=== PATIENT | female | born 1965 | race Caucasian/White ===

== ENCOUNTER 2019-11-07 13:33 | Outpatient (CLI) | payer BC, SELFPAY ==
--- NOTE | ~2019-11-07 | MM_ITS ---
EXAMINATION: MM screening rudolph BI w adan HISTORY: Screening mammogram TECHNIQUE: Craniocaudal and mediolateral oblique 3-D tomosynthesis images were obtained and synthetic 2-D images were generated. CAD analysis was submitted and interpreted. COMPARISON: 10/26/2018, 11/29/2015, 06/29/2013 bilateral screening mammogram examinations BREAST PARENCHYMAL COMPOSITION: There are scattered areas of fibroglandular density. FINDINGS: There is no evidence of suspicious mass, calcification, or architectural distortion to sugg est malignancy in either breast. There has been no suspicious interval change. IMPRESSION: 1. No mammographic evidence of malignancy. 2. Recommend routine screening mammography in one year. BI-RADS Category 1: Negative Reviewed, dictated and finalized at location A. 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
== END 2019-11-07 13:34 | disposition home or self-care (01) ==
LOC: ANHIMG 13:38
PROVIDERS: PCP Family Medicine; Visit Provider Obstetrics & Gynecology
DX: Z12.31 Encounter for screening mammogram for malignant neoplasm of breast (principal)
CPT/HCPCS: 77063; 77067

== ENCOUNTER 2020-07-21 13:03 | Emergency (ER) | payer OTHER, BC, SELFPAY ==
--- NOTE | ~2020-07-21 | XR_ITS ---
EXAMINATION: XR shoulder RT min 2V INDICATION: Right shoulder pain TECHNIQUE: Four views of the right shoulder are obtained on six radiographs. COMPARISON: None FINDINGS: Normal alignment. No fracture. Glenohumeral and acromioclavicular joint spaces are normal. Soft tissues are unremarkable. IMPRESSION: 1. No acute osseous abnormality. Reviewed, dictated and finalized at location A.
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
[2020-07-21 13:06] VITALS: BP 179/73; PULSE 61; RESP 16; TEMP 37.2; O2SAT 99
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
== END 2020-07-21 14:55 | disposition home or self-care (01) ==
PROVIDERS: Emergency Provider Emergency Medicine; PCP Family Medicine
DX: S16.1XXA Strain of muscle, fascia and tendon at neck level, initial encounter (principal); E78.5 Hyperlipidemia, unspecified; I10 Essential (primary) hypertension; Z87.442 Personal history of urinary calculi; E11.9 Type 2 diabetes mellitus without complications; M47.812 Spondylosis without myelopathy or radiculopathy, cervical region; E89.0 Postprocedural hypothyroidism; V43.52XA Car driver injured in collision with other type car in traffic accident, initial encounter
CPT/HCPCS: 72125; 73030; 99284

== ENCOUNTER → 2020-07-30 11:59 | Outpatient (CLI) | payer BC, SELFPAY ==
--- NOTE | ~2020-07-30 | US_ITS ---
EXAMINATION: US thyroid DATE: 07/30/2020 12:26 INDICATION: Nontoxic single thyroid nodule. TECHNIQUE: Multiple ultrasound images of the thyroid were obtained. COMPARISON: Ultrasound 11/24/2009 FINDINGS: The right thyroid lobe measures 5.1 x 1.9 x 1.7 cm. The left thyroid lobe measures 6.1 x 2.7 x 2.4 c m. The thyroid demonstrates diffusely heterogeneous echogenicity and multiple nodules. In the left t hyroid lobe, there is a 3.1 cm solid, hypoechoic, gadbo-zwlv-oetq nodule with ill-defined margin with out echogenic foci (TI-RADS TR4). In the left thyroid lobe, there is a 1.5 cm solid, hypoechoic, wide r-than-tall nodule with ill-defined margin without echogenic foci (TR4). In the left thyroid lobe, th ere is a 1.4 cm solid, hypoechoic, ysqow-xdua-sfgf nodule with ill-defined margin without echogenic f oci (TR4). In the right thyroid lobe, there is a 1.3 cm solid, hyperechoic, gyerp-zkdh-lmbe nodule wi th smooth margin without echogenic foci (TR3). In the right thyroid lobe, there is a 1.4 cm solid, is oechoic, ypyke-btkd-wjhf nodule with ill-defined margin without echogenic foci (TR3). IMPRESSION: 1. Multinodular goiter, worsened from 11/24/2009. Ultrasound-guided fine needle aspiration of the 2 la rgest nodules is recommended. Reviewed, dictated and finalized at location A. IMPRESSION: 1. Multinodular goiter, worsened from 11/24/2009. Ultrasound-guided fine needle aspiration of the 2 largest nodules is recommended.
== END ==
PROVIDERS: Visit Provider Internal Medicine Endocrinology, Diabetes & Metabolism
DX: E04.2 Nontoxic multinodular goiter (principal)
CPT/HCPCS: 76536

== ENCOUNTER 2020-08-12 06:33 | Outpatient (CLI) | payer OTHER, BC, SELFPAY ==
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
== END 2020-08-12 06:34 | disposition home or self-care (01) ==
PROVIDERS: PCP Family Medicine; Visit Provider Nurse Practitioner Family
DX: M54.2 Cervicalgia (principal); V89.2XXA Person injured in unspecified motor-vehicle accident, traffic, initial encounter; M47.812 Spondylosis without myelopathy or radiculopathy, cervical region
CPT/HCPCS: 72141

== ENCOUNTER 2021-03-27 11:29 | Emergency (ER) | payer BC, SELFPAY ==
[2021-03-27] VITALS (10 sets, daily range): BP systolic 147–171; BP diastolic 81–100; PULSE 65–75; RESP 16–22; TEMP 37.1; O2SAT 95–100
--- NOTE | ~2021-03-27 | CT_ITS ---
EXAMINATION: CT abdomen pelvis w con DATE: 03/27/2021 17:42 INDICATION: Right lower quadrant abdominal pain TECHNIQUE: Computed tomography (CT) of the abdomen and pelvis was performed with 100 cc intravenous c ontrast. Automated exposure control and iterative reconstruction technique were employed. Exam dose: 1051.19 mGy-cm total exam DLP. COMPARISON: 07/26/2019 KUB 07/16/2019 CT abdomen pelvis FINDINGS: Mild atelectasis at the left lung base. The lung bases are otherwise clear. Normal heart size. No pericardial or pleural effusion. Status post cholecystectomy. The liver, bile ducts, spleen, pancreas, pancreatic duct, and adrenal glands and kidneys and urinary bladder are unremarkable. Status post hysterectomy. Normal caliber abdominal aorta. No intraperitoneal or retroperitoneal or pelvic mass lesion or adenop athy or ascites. Diverticulosis of the sigmoid and to a lesser extent descending colon; no CT evidence of diverticulit is. No bowel obstruction, bowel wall thickening, pneumatosis or intraperitoneal free air. Fat-containing umbilical hernia. There is distention of the proximal jejunum up to 2.8 cm, with fluid containing small bowel segments, which may represent enteritis or mild adynamic ileus. There are some shoddy nonenlarged right lower quadrant lymph nodes. No evidence of appendicitis. No suspicious osteolytic or osteoblastic lesions. IMPRESSION: Status post cholecystectomy Status post hysterectomy Nonspecific nondilated fluid-containing small bowel segments, which may be due to enteritis or mild a dynamic ileus Diverticulosis of left colon; no CT evidence of diverticulitis Reviewed, dictated and finalized at Location A. Reviewed, dictated and finalized at location A. IMPRESSION: Status post cholecystectomy Status post hysterectomy Nonspecific nondilated fluid-containing small bowel segments, which may be due to enteritis or mild adynamic ileus Diverticulosis of left colon; no CT evidence of diverticulitis
[2021-03-27 12:32] LABS: Basophils Absolute Auto 0.1 K/mm3 (0.0-0.1); Basophils Percent Auto 0.5 % (0.2-1.2); Eosinophils Absolute Auto 0.3 K/mm3 (0-0.3); Eosinophils Percent Auto 2.7 % (0-4.4); Hematocrit 42.4 % (37.0-47.0); Hemoglobin 14.3 g/dL (12.0-15.0); Immature Granulocyte Absolute 0.03 K/mm3 (0.00-0.031); Immature Granulocyte Percent A 0.3 % (0-0.5); Lymphocytes Absolute Auto 2.65 K/mm3 (0.9-3.2); Mean Corpuscular HGB Conc 33.7 g/dl (32-36); Mean Corpuscular Hemoglobin 30.5 pg (26-34); Mean Corpuscular Volume 90.4 fl (80-100); Mean Platelet Volume 9.9 fl (7.4-10.4); Monocytes Absolute Auto 0.6 K/mm3 (0.1-0.6); Monocytes Percent Auto 6.9 % (2.6-8.5); Neutrophils Absolute Auto 5.5 K/mm3 (1.3-6.7); Neutrophils Percent Auto 60.6 % (45.5-73.1); Platelet Count Result 271 k/mm3 (150-375); Red Blood Count 4.69 M/mm3 (4.2-5.4); Red Cell Distribution Width 12.4 % (11.5-14.5); White Blood Count 9.2 K/mm3 (4.5-10.0)
[2021-03-27 12:42] LABS: Alanine Aminotransferase 21 U/L (4-35); Albumin Level 4.6 g/dL (3.5-5.1); Alkaline Phosphatase 117 U/L (38-126); Anion Gap 8 mmol/L (8-16); Aspartate Amino Transferase 30 U/L (14-36); Bilirubin,Total 0.7 mg/dL (0.2-1.3); Blood Urea Nitrogen 11 mg/dL (7-17); Calcium 9.7 mg/dL (8.4-10.2); Carbon Dioxide 29 mmol/L (22-30); Chloride 107 mmol/L (98-107); Estimated CRCL calculation 78 ml/min; Estimated Glomerular Filt Rate > 60; Glucose 119 mg/dL (65-105); Lipase 53 U/L (23-300); Potassium 3.9 mmol/L (3.4-5.0); Sodium 144 mmol/L (137-145)
[2021-03-27 14:57] LABS: Add Urine Microscopic? YES; Amorphous Sediment Urine Few; Appearance Urine Cloudy (Clear); Bacteria Urine Trace /hpf; Bilirubin Urine Negative (Negative); Blood Urine 2+ (Negative); Color Urine Amber (Yellow); Glucose Urine UA Negative (Negative); Ketones Urine Negative (Negative); Leukocyte Esterase Ur Negative LEU/UL (Negative); Mucus Urine Heavy /lpf; Nitrate Urine Negative (Negative); Protein Urine 1+ mg/dL (Negative); Specific Grav Ur 1.028 (1.001-1.035); Squamous Epithelial Cell Urine Few /hpf (Few); Urobilinogen Urine Negative mg/dL (<2.0)
--- NOTE | 2021-03-27 18:15 | ED.ABDPAIN ---
HPI - Abdominal Pain General Chief Complaint: Abdominal Pain Stated Complaint: rt lower abd pain, n/v/d Time Seen by Provider: 03/27/21 16:12 Source: patient Mode of arrival: ambulatory Limitations: no limitations History of Present Illness HPI narrative: 55-year-old with a history of hypertension, diabetes , diverticulosis here with complaints of right lower abdominal pain since this morning. Patient states that for the past day or so she has been having diarrhea. She denies any blood in the stool. No history of fever or chills. Denies urinary symptoms. MD elicited complaint: abdominal pain Pertinent past history: diverticulitis Onset (ago): day(s) (1) Pain Consistency: constant Location: RLQ Severity: mild Quality: cramping Radiation: none Migration to: no migration Exacerbating factors: nothing Relieving factors: nothing Related Data Allergies Allergy/AdvReac Type Severity Reaction Status Date / Time Sulfa (Sulfonamide Allergy Severe RASH Verified 09/25/20 13:45 Antibiotics) atenolol Allergy Unknown Cough Verified 09/25/20 13:45 cefuroxime Allergy Unknown Rash Verified 09/25/20 13:45 latex Allergy Unknown Unknown Verified 09/25/20 13:45 levofloxacin Allergy Unknown Rash Verified 09/25/20 13:45 sulfanilamide Allergy Unknown Rash Verified 09/25/20 13:45 adhesive tape AdvReac Severe RASH Verified 09/25/20 13:45 Review of Systems Review of Systems: All systems reviewed & are unremarkable except as noted in HPI and below Constitutional: Constitutional: Reports no additional constitutional complaints Eyes: Eyes: Reports no additional eye complaints ENT: Reports system reviewed and no additional complaints, except as documented Cardiovascular: Cardiovascular: Reports no additional cardiovascular complaints Respiratory: Respiratory: Reports no additional respiratory complaints Gastrointestinal: Gastrointestinal: Reports as per HPI Musculoskeletal: Musculoskeletal: Reports no additional musculoskeletal complaints Neurologic: Reports system reviewed and no additional complaints, except as documented Psychiatric: Psychiatric: Reports no additional psychiatric complaints [facility] Past Medical History Medical History Acute left-sided low back pain without sciatica BMI 34.0-34.9,adult Dyslipidemia Essential hypertension Irritable bowel syndrome with diarrhea Kidney stone New onset type 2 diabetes mellitus Other ventral hernia without mention of obstruction or gangrene Piriformis muscle pain Plantar fascial fibromatosis Thyroid nodule Family History Family History Father Hypertension Family history of diabetes mellitus in first degree relative Family history of heart disease in male family member before age 55 Diabetes mellitus Family history of cardiovascular disease Mother Hypertension Family history of heart disease in male family member before age 55 Grandparent Hypertension Family history of heart disease in male family member before age 55 Sibling Diabetes mellitus Hypertension Family history of malignant neoplasm of breast in first degree relative Social History Social History Smoking status: Never smoker Alcohol intake: current Exam Narrative: Exam Narrative: GENERAL: Well-appearing, well-nourished, and in no acute distress. HEAD: Normocephalic, atraumatic. EYES: PERRLA and EOMI. NECK: Supple. CHEST: Clear to auscultation. No respiratory distress. HEART: Regular rate and rhythm. No murmur heard. Normal peripheral pulses. ABDOMEN: Soft, mild tendeness in the right lower quadrant, nondistended, normal active bowel sounds. EXTREMITIES: Normal range of motion. No edema. SKIN: Warm, dry, no rash. NEURO: No focal deficits. Alert and oriented x3. PSYCH: Normal mood and affect. Course Course Emergency Course: Patient has
== END 2021-03-27 18:46 | disposition home or self-care (01) ==
PROVIDERS: Emergency Provider Family Medicine; PCP Family Medicine
DX: K52.9 Noninfective gastroenteritis and colitis, unspecified (principal); R10.31 Right lower quadrant pain; I10 Essential (primary) hypertension; E11.9 Type 2 diabetes mellitus without complications
CPT/HCPCS: 36415; 74177; 80053; 81001; 83690; 85025; 99284; Q9967

== ENCOUNTER → 2021-05-12 15:29 | Outpatient (CLI) | payer BC, SELFPAY ==
--- NOTE | ~2021-05-12 | XR_ITS ---
XR knee RT 2V DATE: 05/12/2021 15:56 INDICATION: Right knee pain TECHNIQUE: Standing AP and lateral views COMPARISON: None FINDINGS: There is slight periarticular spurring of the patella consistent with osteoarthritis. Knee joint spaces appear well preserved. No radiopaque intra-articular loose body or chondrocalcinosi s. No fracture or dislocation or joint effusion. No periosteal reaction or bone destruction. IMPRESSION: Mild osteoarthritis at the patellofemoral joint Reviewed, dictated and finalized at location B.
--- NOTE | ~2021-05-12 | XR_ITS ---
XR knee LT 2V DATE: 05/12/2021 15:56 INDICATION: Left knee pain TECHNIQUE: Standing AP and lateral views COMPARISON: None FINDINGS: There is periarticular spurring at the patellofemoral compartment. Medial and lateral will rtment joint spaces are well preserved. No fracture or dislocation or joint effusion, radiopaque intra-articular loose body or chondrocalcino sis. No periosteal reaction or bone destruction. IMPRESSION: Patellofemoral osteoarthritis Reviewed, dictated and finalized at location B.
== END ==
PROVIDERS: PCP Family Medicine; Visit Provider Nurse Practitioner Family
DX: M25.561 Pain in right knee (principal); M25.562 Pain in left knee; M17.0 Bilateral primary osteoarthritis of knee
CPT/HCPCS: 73560

== ENCOUNTER → 2021-06-09 01:56 | Outpatient (CLI) | payer BC, SELFPAY ==
[2021-06-09 19:54] LABS: SARS-CoV-2 RNA PCR Negative
== END ==
PROVIDERS: PCP Family Medicine; Visit Provider Physician Assistant Medical
DX: R68.89 Other general symptoms and signs (principal); J02.9 Acute pharyngitis, unspecified; Z20.822 Contact with and (suspected) exposure to COVID-19
CPT/HCPCS: C9803; U0003; U0005

== ENCOUNTER → 2021-06-26 01:36 | Outpatient (CLI) | payer BC, SELFPAY ==
[2021-06-26 19:38] LABS: SARS-CoV-2 RNA PCR Negative
== END ==
PROVIDERS: PCP Family Medicine; Visit Provider Family Medicine
DX: R68.89 Other general symptoms and signs (principal); Z20.822 Contact with and (suspected) exposure to COVID-19
CPT/HCPCS: C9803; U0003; U0005

== ENCOUNTER → 2021-08-19 07:47 | Outpatient (CLI) | payer BC, SELFPAY ==
--- NOTE | ~2021-08-19 | US_ITS ---
EXAMINATION: US thyroid EXAM DATE: 08/19/2021 08:42 INDICATION: Multinodular goiter TECHNIQUE: Multiple grayscale and Doppler images of the thyroid were obtained (by a technologist who performed the scan) and subsequently reviewed. Individual nodules and recommendations may be reporte d in accordance with TI-RADS system as designated by the 2017 ACR White Paper TI-RADS committee. Comp temitope is made to prior examination from 07/30/2020. FINDINGS: Right thyroid lobe measures 5.3 x 2.2 x 1.7 cm, the left measuring 6.0 x 2.9 x 2.5 cm. Dimensions are moderately enlarged. There is moderately diffusely heterogeneous echogenicity and increased thyroid parenchymal vascularity. Scattered thyroid nodules. Largest right thyroid lobe nodule measures 1.4 x 1.0 x 1.1 cm, solid (2 points), isoechoic (1 point), wider than tall, smooth well defined margin, without echogenic foci, category TR3 for this nodule. T his is unchanged. Largest left thyroid lobe nodule measures 3.1 x 1.9 x 2.2 centimeters, solid (2 points), isoechoic (1 point), wider than tall, smooth well defined margin, without echogenic foci, category TR3 for this n odule. Dimensions provided on previous exam at 3.1 x 2.3 x 2.0. Size warrants considering ultrasound and biopsy IMPRESSION: Stable multinodular goiter. Consider ultrasound-guided FNA of largest left thyroid lobe n odule. Reviewed, dictated and finalized at location A. 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 Consider ultrasound-guided FNA of large st left thyroid lobe nodule.
== END ==
PROVIDERS: PCP Family Medicine; Visit Provider Internal Medicine Endocrinology, Diabetes & Metabolism
DX: E04.2 Nontoxic multinodular goiter (principal)
CPT/HCPCS: 76536

== ENCOUNTER 2021-11-12 08:13 | Outpatient (CLI) | payer BC, SELFPAY ==
[2021-11-12 08:45] LABS: Cholesterol 170 mg/dL (0-200); HDL Direct 31 mg/dL; Triglycerides 100 mg/dL (<150)
[2021-11-12 08:54] LABS: Hemoglobin A1C 5.9 % (<5.7)
[2021-11-12 08:56] LABS: LDL Cholesterol Direct 98 mg/dL
[2021-11-12 09:17] LABS: Thyroid Stimulating Hormone 0.482 uIU/mL (0.465-4.680)
[2021-11-12 09:40] LABS: Free T4 Free Thyroxine 1.01 ng/mL (0.78-2.19)
== END 2021-11-12 08:14 | disposition home or self-care (01) ==
LOC: ANHLAB 08:15
PROVIDERS: PCP Family Medicine; Visit Provider Family Medicine
DX: E04.1 Nontoxic single thyroid nodule (principal); E11.65 Type 2 diabetes mellitus with hyperglycemia; E78.5 Hyperlipidemia, unspecified; Z13.220 Encounter for screening for lipoid disorders
CPT/HCPCS: 36415; 80061; 83036; 84439; 84443

== ENCOUNTER 2021-12-29 11:36 | Outpatient (CLI) | payer BC, SELFPAY ==
--- NOTE | ~2021-12-29 | MMUS_ITS ---
EXAMINATION: MM diagnostic rudolph BI w adan, US breast BI complete HISTORY: Bilateral breast pain for over 2 months TECHNIQUE: ML, MLO and CC 3-D tomosynthesis images of both breasts were performed and synthetic 2-D i mages were generated. CAD analysis was submitted and interpreted. High resolution complete breast ult rasound including all 4 quadrants and subareolar areas was performed. COMPARISON: 11/07/2019, 10/26/2018 bilateral screening mammogram examinations BREAST PARENCHYMAL COMPOSITION: There are scattered areas of fibroglandular density. FINDINGS: MAMMOGRAPHIC FINDINGS: No suspicious mass or architectural distortion, malignant calcification, skin thickening or retractio n or significant new or developing density is detected. ULTRASOUND: There is no evidence of suspicious mass or shadowing or other significant sonographic finding of eith er breast. IMPRESSION: 1. No mammographic evidence of malignancy 2. Routine mammographic screening is recommended. BI-RADS Category 1: Negative Reviewed, dictated and finalized at location A. IMPRESSION: 1. No mammographic evidence of malignancy 2. Routine mammographic screening is recommended. BI-RADS Category 1: Negative
== END 2021-12-29 11:37 | disposition home or self-care (01) ==
LOC: ANHIMG 11:41
PROVIDERS: PCP Family Medicine; Visit Provider Obstetrics & Gynecology
DX: N64.4 Mastodynia (principal)
CPT/HCPCS: 76641; 77062; 77066; G0279

== ENCOUNTER → 2022-06-01 15:25 | Outpatient (CLI) | payer BC, SELFPAY ==
--- NOTE | ~2022-06-01 | XR_ITS ---
EXAMINATION: [id number]_[id number] INDICATION: Chest pain TECHNIQUE: AP view of the chest and 3 views of the bilateral ribs were obtained. COMPARISON: None. FINDINGS: The lungs are free of acute opacities. No pleural effusion or pneumothorax. The cardiomedia stinal silhouette is normal. No displaced rib fracture is identified. Surgical clips are noted in the right neck. Surgical clips in the right upper quadrant are likely from prior cholecystectomy. IMPRESSION: 1. No acute cardiopulmonary abnormality or evidence of displaced rib fracture. Reviewed, dictated and finalized at location B.
== END ==
PROVIDERS: PCP Family Medicine; Visit Provider Nurse Practitioner Family
DX: R07.9 Chest pain, unspecified (principal)
CPT/HCPCS: 71111

== ENCOUNTER → 2023-03-31 09:42 | Outpatient (CLI) | payer BC, SELFPAY ==
--- NOTE | ~2023-03-31 | US_ITS ---
US thyroid INDICATION: Thyroid nodule TECHNIQUE: Real-time sonographic images of the thyroid gland were obtained. COMPARISON: Ultrasound dated 08/19/2021 FINDINGS: The right thyroid lobe measures 5.4 x 2 x 1.6 cm. The left thyroid lobe measures 5 x 3 x 2 .6 cm. Thyroid echotexture is diffusely heterogeneous. In the right lobe there is a complex solid hyp erechoic wider than tall ill-defined marginated mass without echogenic foci measuring 1.5 x 0.9 x 1.4 cm compared with 1.4 x 1 x 1.1 cm on prior examination, TR 3. In the left lobe there is a dominant m ass measuring 3.1 x 2 x 2 cm which is predominantly solid, hyperechoic, wider than tall, smoothly mar ginated without echogenic foci, TR 3. This mass is stable compared with prior examination. Additional smaller masses are unchanged. Normal vascular flow is present. IMPRESSION: 1. Slightly increased size of right thyroid mass allowing for differences of technique. Bilateral th yroid masses are compatible with multinodular goiter and are likely benign. Recommend follow-up ultra sound in 12 months. Reviewed, dictated and finalized at location L. IMPRESSION: 1. Slightly increased size of right thyroid mass allowing for differences of t echnique. Bilateral thyroid masses are compatible with multinodular goiter and are likely benign. Recommend follow-up ultrasound in 12 months.
== END ==
PROVIDERS: PCP Family Medicine; Visit Provider Family Medicine
DX: E04.1 Nontoxic single thyroid nodule (principal)
CPT/HCPCS: 76536

== ENCOUNTER 2023-06-09 08:53 | Emergency (ER) | payer BC, SELFPAY ==
--- NOTE | ~2023-06-09 | US_ITS ---
Duplex Sonography of the left extremity: Indication: Pain and swelling Findings: Sagittal and transverse B-mode images as well as color-flow imaging were performed on the l eft femoral and popliteal veins. B-mode examination was done without and with compression in the tra nsverse plane. There is good visualization of the common femoral, proximal profunda femoral, superfi cial femoral, greater saphenous, and popliteal veins. Normal flow was seen on color-flow imaging. No rmal compressibility was demonstrated. Visualized calf veins are also patent. Impression: No evidence of deep vein thrombosis involving the left lower extremity. Reviewed, dictated and finalized at location . Impression: No evidence of deep vein thrombosis involving the left lower extremity.
[2023-06-09 08:58] VITALS: BP 154/84; PULSE 60; RESP 16; TEMP 36.9; O2SAT 100
--- NOTE | 2023-06-09 09:43 | ED.GENADULT ---
HPI - General Adult General Chief complaint: Extremity Problem,Nontraumatic Stated complaint: left knee swelling Time Seen by Provider: 06/09/23 09:00 Source: patient Mode of arrival: ambulatory Limitations: no limitations History of Present Illness HPI narrative: This is a 57-year-old female who presents to the ED with chief complaint of left lower extremity pain beginning 10 days ago. Patient states that she has had posterior left knee pain that radiates into the calf and superiorly as well. She reports that she is starting to have some calf swelling over the past couple days which is new to her. Denies any history of blood clots. 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 Denies fevers, chills, erythema, warmth, nausea, vomiting. Related Data Allergies Allergy/AdvReac Type Severity Reaction Status Date / Time Sulfa (Sulfonamide Allergy Severe RASH Verified 06/09/23 09:04 Antibiotics) atenolol Allergy Unknown Cough Verified 06/09/23 09:04 cefuroxime Allergy Unknown Rash Verified 06/09/23 09:04 latex Allergy Unknown Unknown Verified 06/09/23 09:04 levofloxacin Allergy Unknown Rash Verified 06/09/23 09:04 sulfanilamide Allergy Unknown Rash Verified 06/09/23 09:04 adhesive tape AdvReac Severe RASH Verified 06/09/23 09:04 Review of Systems Review of Systems: All systems as dictated in [facility] Past Medical History Medical History (Updated 06/09/23 @ 09:46 by Logan Sanchez PA-C) Acute left-sided low back pain without sciatica BMI 27.0-27.9,adult BMI 29.0-29.9,adult BMI 32.0-32.9,adult BMI 33.0-33.9,adult BMI 34.0-34.9,adult BMI 36.0-36.9,adult BMI 36.0-36.9,adult Dyslipidemia Essential hypertension Eustachian tube dysfunction Insomnia Irritable bowel syndrome with diarrhea Kidney stone New onset type 2 diabetes mellitus Other ventral hernia without mention of obstruction or gangrene Otitis externa Piriformis muscle pain Plantar fascial fibromatosis Thyroid nodule Family History Family History Father Hypertension Family history of diabetes mellitus in first degree relative Family history of heart disease in male family member before age 55 Diabetes mellitus Family history of cardiovascular disease Mother Hypertension Family history of heart disease in male family member before age 55 Grandparent Hypertension Family history of heart disease in male family member before age 55 Sibling Diabetes mellitus Hypertension Family history of malignant neoplasm of breast in first degree relative Breast cancer [place]'s disease Heart disease Social History Social History Smoking status: Never smoker Second hand tobacco smoke exposure: Yes Alcohol intake: current Substance use: never Substance use type: does not use Living arrangements: with family Occupation/Education: retired 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 HEAD: Normocephalic, atraumatic. EYES: PERRLA and EOMI. ENT: Nares clear, no rhinorrhea or epistaxis. Mucous membranes moist. Oropharynx without tonsillar hypertrophy exudate or other lesions. NECK: Supple. No adenopathy or masses. CHEST: No respiratory distress. Clear to auscultation. No wheezes rales or rhonchi HEART: Regular rate and rhythm. No murmur heard. Normal peripheral pulses. ABDOMEN: Soft, nontender, nondistended, normal active bowel sounds. MSK: Left lower extremity: Mild swelling in the left calf. Mild tenderness throughout the knee joint. Most tenderness is on the lateral side of the knee extending up the left lateral thigh. There is no redness, warmth in the joint. She has full active r
[2023-06-09 10:01] VITALS: BP 136/82; PULSE 78; RESP 16; O2SAT 99
== END 2023-06-09 10:02 | disposition home or self-care (01) ==
PROVIDERS: Emergency Provider Physician Assistant; PCP Family Medicine
DX: M25.562 Pain in left knee (principal); I10 Essential (primary) hypertension; E78.5 Hyperlipidemia, unspecified; E11.9 Type 2 diabetes mellitus without complications; K58.0 Irritable bowel syndrome with diarrhea; M72.2 Plantar fascial fibromatosis; Z87.442 Personal history of urinary calculi
CPT/HCPCS: 93971; 99284

== ENCOUNTER 2023-06-30 09:00 | Outpatient (CLI) | payer BC, SELFPAY ==
--- NOTE | ~2023-06-30 | MM_ITS ---
EXAMINATION: MM screening rudolph BI w adan HISTORY: Screening TECHNIQUE: Craniocaudal and mediolateral oblique 3-D tomosynthesis images were obtained and synthetic 2-D images were generated. CAD analysis was submitted and interpreted. COMPARISON: Comparison to multiple prior studies sequentially, with oldest reviewed study dated 12/03. BREAST PARENCHYMAL COMPOSITION: Breast composed of scattered areas of fibroglandular density FINDINGS: There is no evidence of suspicious mass, calcification, or architectural distortion to sugg est malignancy in either breast. There has been no suspicious interval change. IMPRESSION: 1. No mammographic evidence of malignancy. 2. Recommend routine screening mammography in one year. BI-RADS Category 1: Negative Reviewed, dictated and finalized at location A.
== END 2023-06-30 09:01 | disposition home or self-care (01) ==
LOC: ANHIMG 09:01
PROVIDERS: PCP Family Medicine; Visit Provider Obstetrics & Gynecology
DX: Z12.31 Encounter for screening mammogram for malignant neoplasm of breast (principal)
CPT/HCPCS: 77063; 77067

== ENCOUNTER → 2023-09-20 13:33 | Outpatient (CLI) | payer BC, SELFPAY ==
--- NOTE | ~2023-09-20 | MR_ITS ---
EXAMINATION: MR knee LT wo con DATE: 09/20/2023 14:34 INDICATION: M17.12 - Unilateral primary osteoarthritis, left knee TECHNIQUE: Magnetic resonance imaging (MRI) of the left knee was performed without intravenous contra st. Sequences included axial PD-weighted FS FSE, coronal PD-weighted FSE and PD-weighted FS FSE, sagi ttal PD-weighted FSE, and sagittal T2-weighted FS FSE. COMPARISON: X-ray left knee 05/12/2021. FINDINGS: Medial compartment: Mild degenerative signal change in the meniscus, no discrete tear. Mild diffuse cartilage thinning an d partial thickness signal abnormality, no focal defect. Mild osteophytosis. Lateral compartment: Intact meniscus. Mild diffuse cartilage thinning and osteophytosis. Patellofemoral compartment: Intact. Focal 2 mm full-thickness cartilage loss on the inferior aspect of the lateral facet with sub chondral cysts, in a background of mild diffuse thinning/partial thickness signal abnormality. Mild o steophytosis. Ligaments and tendons: The ACL, PCL, MCL, and LCL are intact. Remaining flexor and extensor tendons are intact. Fluid: Small volume joint fluid. Tiny Capps's cyst. Osseous/other: No suspicious focal or diffuse marrow signal. IMPRESSION: No internal derangement. Mild tricompartmental osteoarthritic change. Reviewed, dictated and finalized at location K. LOPMENT CONSULTANT
== END ==
PROVIDERS: PCP Family Medicine; Visit Provider Orthopaedic Surgery
DX: M17.12 Unilateral primary osteoarthritis, left knee (principal)
CPT/HCPCS: 73721

== ENCOUNTER 2023-10-31 13:13 | Outpatient (CLI) | payer BC, SELFPAY ==
--- NOTE | 2023-10-31 13:24 | ECG_ITS ---
Measurements Intervals [place] Rate: 63 P: 28 MN: 140 QRS: -17 QRSD: 106 T: -8 QT: 414 QTc: 424 Interpretive Statements SINUS RHYTHM VOLTAGE CRITERIA FOR LVH POOR R WAVE PROGRESSION, ANTERIOR LEADS MINIMAL Q WAVES- HIGH LATERAL LEADS BORDERLINE ST-T WAVE ABNORMALITY- ANT/INF LEADS BASELINE ARTIFACT- I, II, AVR, AVF BORDERLINE ECG NO PREVIOUS ECG AVAILABLE FOR COMPARISON Electronically Signed On 10-31-2023 14:42:08 AERIAL PHOTOGRAPHER by Ken Chin D.O.
== END 2023-10-31 13:14 | disposition home or self-care (01) ==
LOC: ANHSURGERY 13:16
PROVIDERS: PCP Family Medicine; Visit Provider Orthopaedic Surgery
DX: Z01.818 Encounter for other preprocedural examination (principal); I10 Essential (primary) hypertension; R93.1 Abnormal findings on diagnostic imaging of heart and coronary circulation
CPT/HCPCS: 93005

== ENCOUNTER 2023-11-03 00:50 | Day surgery (SDC) | payer BC, SELFPAY ==
[2023-10-27 09:24] VITALS: BMI 32.3
--- NOTE | 2023-10-27 09:31 | PC.NURSE ---
Report to the Outpatient Waiting Room, entrance under the green pavilion located off [facility], at time 11:30 on date 11/03/23. Planned Procedure Time: 1:30. Time changes happen often and if your time is changed the preop area will call you the afternoon before. - You and your visitor will be asked to self-screen and do not enter if you have any COVID symptoms. - A mask is optional within the hospital at this time. Patients may have clear liquids (water, carbonated beverages, clear teas, apple juice) until 3 hours prior to surgery (10:30) with a maximum of 20 ounces. - No food from midnight until time of surgery Take the following medications with a SIP of water the morning of surgery: VALACYCLOVIR IF NEEDED DO NOT STOP ANY OF YOUR OTHER PRESCRIPTION MEDICATIONS PRIOR TO SURGERY ?EXCEPT THE FOLLOWING Medications to discontinue per physician: MELOXICAM Date to take last dose: 10/26/23 Please no make-up, nail korean, hairspray, perfume, deodorant, or body powder the day of surgery. No jewelry (including any body piercings) or valuables the day of surgery, leave them at home. Please take a shower or bath the night before, or the morning of, surgery with an antibacterial soap. Wear comfortable, loose fitting clothing. - Jewelry must be removed prior to entering the operating room. Rings and piercings that are not removed may be cut off. - The hospital will not accept responsibility for valuables. - Please leave all valuables, including medications, at home the day of surgery. If you are going home after surgery, a licensed carry all driver must drive you home. - NO public transportation without another adult if you receive anesthesia. - We recommend that an adult stay with you for 24 hours following discharge. - We also recommend that you do not drive, make important decision, drink alcoholic beverages, or take any drugs that were not prescribed by your health care provider for at least 24 hours after your discharge time. Follow any additional instructions given to you from your surgeon. If you or anyone in your household have experienced Covid symptoms in the past week, please notify your surgeon or the nurse liaison at the phone number below for possible testing. Telephone instructions given to PT - GLEN BARNES and asked if any additional questions and then verbalized understanding. Patient advised to call surgeon office or pre surgery nurse liaison [phone] if any additional questions.
--- NOTE | 2023-11-02 13:13 | WPDANESEPPF ---
Anes - Initial Pre Proc Eval Procedure: Operation Date: 11/03/23 09:30 Proposed Procedures p Left Knee Arthroscopic Patellar Chondroplasty with Microfracture and Lateral Release - Andrey Nelson MD Date/Time: 11/02/23 13:13 Surgeon: Andrey Nelson MD Pre Op Diagnosis: left patella chondral defect Patient Data Age: 58 Gender: F Height: 1.63 m Weight: 85.3 kg Allergies Allergy/AdvReac Type Severity Reaction Status Date / Time Sulfa (Sulfonamide Allergy Severe RASH Verified 11/03/23 08:29 Antibiotics) atenolol Allergy Unknown Cough Verified 11/03/23 08:29 cefuroxime Allergy Unknown Rash Verified 11/03/23 08:29 latex Allergy Unknown Rash Verified 11/03/23 08:29 levofloxacin Allergy Unknown Rash Verified 11/03/23 08:29 sulfanilamide Allergy Unknown Rash Verified 11/03/23 08:29 adhesive tape AdvReac Severe RASH Verified 11/03/23 08:29 Home Medications Medication Instructions Recorded Confirmed Type valacyclovir 500 mg tablet 500 mg PO Q12H #28 tabs 09/12/23 11/01/23 Rx meloxicam 7.5 mg tablet 7.5 mg PO DAILY #90 tabs 09/13/23 11/03/23 Rx lisinopril 40 mg tablet 40 mg PO DAILY #90 tabs 10/30/23 11/03/23 Rx aspirin 81 mg tablet,delayed 81 mg PO BID 14 days #28 tabs 11/03/23 Rx release meloxicam 15 mg tablet 15 mg PO DAILY #30 tabs 11/03/23 Rx oxycodone-acetaminophen 5 mg-325 1 - 2 tablet PO Q4-6H PRN pain #30 11/03/23 Rx mg tablet tabs Patient hx anesthesia problems: post op nausea/vomiting Family hx anesthesia problems: none Results Review: All pre-operative results and documents have been reviewed as part of the pre-operative evaluation. [facility] Past Medical History Medical History Acute left-sided low back pain without sciatica Allergic reaction Bleeding hemorrhoid BMI 27.0-27.9,adult BMI 29.0-29.9,adult BMI 30.0-30.9,adult BMI 31.0-31.9,adult BMI 32.0-32.9,adult BMI 33.0-33.9,adult BMI 34.0-34.9,adult BMI 36.0-36.9,adult BMI 36.0-36.9,adult delivery delivered Cholecystectomy planned Dyslipidemia Essential hypertension Eustachian tube dysfunction Hx of temporomandibular joint disorder Insomnia Irritable bowel syndrome with diarrhea ITB syndrome Kidney stone New onset type 2 diabetes mellitus Other ventral hernia without mention of obstruction or gangrene Otitis externa Patellofemoral arthritis of left knee Piriformis muscle pain Plantar fascial fibromatosis Quadriceps strain Thyroid nodule Surgical History Surgical History History of tonsillectomy Family History Family History Father Hypertension Family history of diabetes mellitus in first degree relative Family history of heart disease in male family member before age 55 Diabetes mellitus Family history of cardiovascular disease Mother Hypertension Family history of heart disease in male family member before age 55 Diabetes mellitus Grandparent Hypertension Family history of heart disease in male family member before age 55 Sibling Diabetes mellitus Hypertension Family history of malignant neoplasm of breast in first degree relative Breast cancer Crista's disease Heart disease Social History Social History Smoking status: Never smoker Second hand tobacco smoke exposure: Yes Alcohol intake: never Substance use: never Substance use type: does not use Do You Feel Safe in your Home?: Yes Lack of Transportation: No Lack of Food: Never True Current Housing: I Have Housing Concerned About Future Housing: No Difficulty Paying Gas/Electric Bills: No Difficulty Paying for Meds: No Currently Unemployed: No Education: Trade/Vocational Certificate Difficulty w/ Childcare or Family Care: No Living arrangements: with
[2023-11-03] VITALS (13 sets, daily range): BP systolic 119–154; BP diastolic 65–102; PULSE 54–90; RESP 14–20; TEMP 36.2–37.6; O2SAT 96–100
--- NOTE | 2023-11-03 07:45 | WPDHPUPDATE1 ---
History and Physical Update Update Date/Time: 11/03/23 07:45 History and Physical has been reviewed, including an updated exam of the patient. There are NO changes in the patient's condition. Risks, benefits, and alternatives have been discussed and questions answered. Patient agrees to proceed with procedure.
[2023-11-03] MEDS: KETOROLAC 15 MG/ML VIAL (*BKC) IV PUSH (08:46)
[2023-11-03] MEDS: ACETAMINOPHEN 500 MG TABLET 1000 MG PO (08:46)
[2023-11-03] MEDS: LACTATED RINGERS 1,000 ML 30 ML IV CONT ×2 (08:49→10:40)
[2023-11-03] MEDS: ONDANSETRON INJ 4 MG/2 ML VIAL IV PUSH (08:53)
[2023-11-03] MEDS: ceFAZolin 2 GM/D5W 50 ML 2 GM/50 ML BAG IVPB (09:19)
[2023-11-03] MEDS: BUPIVACAINE/EPINEPHRINE 0.5% 50 ML VIAL 30 ML INFILTRATE (09:52)
--- NOTE | 2023-11-03 12:54 | W.PM.PROC2 ---
Procedure Note - Detailed Date of Procedure 11/03/23 Pre-op Diagnosis Left knee patella chondral defect with lateral patellar facet overload syndrome. Post-op Diagnosis Same Procedure Performed Arthroscopic lateral release with patellar chondroplasty. Surgeon Andrey Nelson MD Anesthesia General Indications Severe lateral knee pain. Cystic changes at the lateral facet on the MRI. Tight lateral restraints. No response to extensive conservative treatment including in meloxicam, injections, physical therapy, pain management, and injections. Findings High-grade patellofemoral chondromalacia with early areas of exposed bone. Tight lateral restraints. No loose bodies identified. Lateral release performed with the hook probe. Peripatellar debridement and chondroplasty of the patella and medial femoral condyle performed. Medial femur chondromalacia grade 2, medial tibia grade 1. Lateral femur chondromalacia grade 1, lateral tibia grade 0. Patellar grade 4, trochlea grade 4. Description of Procedure The patient was identified and the surgical site confirmed and signed in the preoperative holding area. Antibiotics were started per protocol, and the patient was brought to the operative room and transferred to the OR table. A general anesthetic was administered. Supine position with the operative lower extremity position in the leg fuller after placement of a well padded tourniquet. The leg support was lowered and the contralateral limb was supported with a soft bolster. The knee was prepped and draped in the usual sterile fashion. A time-out was performed. The portal sites were marked and infiltrated with 0.5% Marcaine 20 mL. The limb was exsanguinated and the tourniquet inflated to 300 mL Hg. Standard inferolateral, superior medial, and inferomedial portals were established. Inflow was obtained with the saline pump. The camera was introduced. Diagnostic inspection of the joint was accomplished. There were no obvious meniscus tears. The tissue was probed and found to be stable. Moderate grade chondromalacia in the medial compartment. High-grade chondromalacia at the patellofemoral compartment. Minimal changes in the lateral compartment. The lateral retinaculum was tight. Lateral release was performed from the inferior aspect of the vastus lateralis to the lateral arthroscopic portal. The patella tilt was notably improved. Gentle chondroplasty of the patellofemoral joint and medial femoral condyle was performed. The arthroscopic instruments were removed. The tourniquet released and wounds closed with subcutaneous 4-0 Monocryl absorbable suture. Steri strips and a sterile dressing were applied. A light elastic wrap was placed. The patient was extubated and brought to the recovery room in stable condition. Estimated Blood Loss 5 Drains No Complications No immediate complications Condition Stable Disposition PACU AM [facility] - Charge Forward: Surgery [facility]
--- NOTE | 2023-11-03 13:11 | SUR.PHASEII ---
1300: Patient unhooked from monitors and waiting for PT to provide crutch training.
--- NOTE | 2023-11-03 14:35 | SUR.PHASEII ---
PT is doing crutch training with patient at this time.
== END 2023-11-03 14:53 | disposition home or self-care (01) ==
PROVIDERS: PCP Family Medicine; Visit Provider Orthopaedic Surgery
PROC: (CPT 29870; principal; 2023-11-03 09:30)
DX: M23.8X2 Other internal derangements of left knee (principal); M22.42 Chondromalacia patellae, left knee; I10 Essential (primary) hypertension; E78.5 Hyperlipidemia, unspecified; G47.00 Insomnia, unspecified; K58.0 Irritable bowel syndrome with diarrhea; E11.9 Type 2 diabetes mellitus without complications; E66.9 Obesity, unspecified; Z68.31 Body mass index [BMI] 31.0-31.9, adult; Z79.82 Long term (current) use of aspirin; Z79.891 Long term (current) use of opiate analgesic; Z98.890 Other specified postprocedural states; Z82.49 Family history of ischemic heart disease and other diseases of the circulatory system; Z80.3 Family history of malignant neoplasm of breast
CPT/HCPCS: 29873; 97161; A9270; J0690; J1100; J1885; J2250; J2405; J2704; J3010; J7120; L1830

== ENCOUNTER 2024-03-06 13:32 | Outpatient (CLI) | payer BC, SELFPAY ==
--- NOTE | ~2024-03-06 | XR_ITS ---
EXAM: XR knee LT 3V DATE: 03/06/2024 13:44 HISTORY: Z98.890 - Other specified postprocedural states . COMPARISON: 06/08/2021. FINDINGS: Normal mineralization. No fracture or dislocation. No lytic or blastic lesion. Mild medial joint space narrowing. Mild tricompartmental osteophytosis. Small volume joint fluid. No erosion or periosteal change. Soft tissues within normal limits. IMPRESSION: Mild tricompartmental left knee osteoarthritis. Reviewed, dictated and finalized at location K.
== END 2024-03-06 13:33 ==
PROVIDERS: PCP Family Medicine; Visit Provider Orthopaedic Surgery
DX: M17.12 Unilateral primary osteoarthritis, left knee (principal); Z98.890 Other specified postprocedural states
CPT/HCPCS: 73562

== ENCOUNTER 2024-03-28 13:34 | Outpatient (CLI) | payer BC, SELFPAY ==
--- NOTE | ~2024-03-28 | US_ITS ---
BILATERAL LOWER EXTREMITY VENOUS ULTRASOUND Ordering provider: Shiela Bah, PAC History: . M79.342 - Pain in left lower leg . Comparison: None. FINDINGS: RIGHT LOWER EXTREMITY VEINS: --COMMON FEMORAL: Patent and free of thrombus. Normal compressibility, phasic flow and augmentation. --PROXIMAL SUPERFICIAL FEMORAL: Patent and free of thrombus. Normal compressibility, phasic flow and augmentation. --DISTAL SUPERFICIAL FEMORAL: Patent and free of thrombus. Normal compressibility, phasic flow and au gmentation. --POPLITEAL: Patent and free of thrombus. Normal compressibility, phasic flow and augmentation. --POSTERIOR TIBIAL: Patent and free of thrombus. Normal compressibility, phasic flow and augmentation . LEFT LOWER EXTREMITY VEINS: --COMMON FEMORAL: Patent and free of thrombus. Normal compressibility, phasic flow and augmentation. --PROXIMAL SUPERFICIAL FEMORAL: Patent and free of thrombus. Normal compressibility, phasic flow and augmentation. --DISTAL SUPERFICIAL FEMORAL: Patent and free of thrombus. Normal compressibility, phasic flow and au gmentation. --POPLITEAL: Patent and free of thrombus. Normal compressibility, phasic flow and augmentation. --POSTERIOR TIBIAL: Patent and free of thrombus. Normal compressibility, phasic flow and augmentation . IMPRESSION: Negative bilateral lower extremity venous US. No deep vein thrombosis. Reviewed, dictated and finalized at location A.
== END 2024-03-28 13:35 | disposition home or self-care (01) ==
LOC: ANHIMG 13:35
PROVIDERS: PCP Family Medicine; Visit Provider Physician Assistant Medical
DX: M79.89 Other specified soft tissue disorders (principal)
CPT/HCPCS: 93970

== ENCOUNTER 2024-05-14 10:06 | Outpatient (CLI) | payer BC, SELFPAY ==
--- NOTE | ~2024-05-14 | US_ITS ---
EXAMINATION: US thyroid DATE: 05/14/2024 10:24 INDICATION: Nontoxic single thyroid nodule. TECHNIQUE: Multiple ultrasound images of the thyroid were obtained. COMPARISON: Ultrasound 03/31/2023, 07/30/20, 08/19/21 FINDINGS: The right thyroid lobe measures 5.2 x 2.1 x 1.8 cm. The left thyroid lobe measures 5.1 x 2.7 x 2.8 c m. The thyroid is diffusely heterogeneous and increased vascularity. In the left thyroid lobe, there is a 3.4 cm solid, isoechoic, wider than tall nodule with lobulated margin without echogenic foci (T I-RADS TR3), stable from 07/30/20. In the left thyroid lobe, there is 11 mm solid, isoechoic, wider t calderón tall nodule with ill-defined margin without echogenic foci (TR3). In the right thyroid lobe, ther e is an 18 mm solid, isoechoic, wider than tall nodule with smooth margin without echogenic foci (TR3 ), stable from 08/19/21. In the right thyroid lobe, there is a 13 mm solid, hypoechoic, wider than ta ll nodule with ill-defined margin without echogenic foci (TR4). In the right thyroid lobe, there is a 13 mm solid, isoechoic, wider than tall nodule with ill-defined margin without echogenic foci (TR3). IMPRESSION: 1. Multinodular goiter. Consider thyroid ultrasound in 2 years. Reviewed, dictated and finalized at location A.
== END 2024-05-14 10:07 ==
LOC: MICIMG 10:07
PROVIDERS: PCP Family Medicine; Visit Provider Family Medicine
DX: E04.2 Nontoxic multinodular goiter (principal)
CPT/HCPCS: 76536

== ENCOUNTER 2024-07-02 07:37 | Outpatient (CLI) | payer BC, SELFPAY ==
--- NOTE | ~2024-07-02 | NM_ITS ---
EXAMINATION: NM flaquito stress w perfusion DATE: 07/02/2024 14:24 INDICATION: Chest pain TECHNIQUE: Rest images were obtained following intravenous administration of 11.9 mCi Tc99m tetrofosm in (Myoview). The patient was infused intravenously with Lexiscan (Regadenoson). Then, 34.5 mCi Tc99m tetrofosmin (Myoview) was administered intravenously, and stress images were obtained in both the emerson pine and prone positions. Data was reconstructed into short axis and horizontal and vertical long axi s SPECT images. Gated SPECT images were also obtained. COMPARISON: None. FINDINGS: There is a mild reversible perfusion defect consistent with ischemia involving the apical a nterior segment extending minimally into the adjacent apical and apical lateral segments. There is no perfusion defect on the rest imaging to suggest infarct. There is normal left ventricular chamber si ze, wall motion and ejection fraction. Left ventricular ejection fraction measures 66%. IMPRESSION: 1. Small region of mild reversible ischemia in the apical anterior segment extending minimally into t he apical and apical lateral segments. No infarct. 2. Left ventricular ejection fraction measuring 66%. Reviewed, dictated and finalized at location A. IMPRESSION: 1. Small region of mild reversible ischemia in the apical anterior segment exte nding minimally into the apical and apical lateral segments. No infarct. 2. Left ventricular ejection fraction measuring 66%.
--- NOTE | 2024-07-02 07:44 | ECHO_ITS ---
Patient Info Name: Micaela Parra Age: 58 years : 1965 Gender: Female Ht: 64 in Wt: 208 lbs BSA: 2.11 m2 HR: 63 bpm BP: 175 / 105 mmHg Technical Quality: Good Exam Date: 07/02/2024 7:59 AM Exam Location: Echo Lab Patient Status: Outpatient Admit Date: 07/02/2024 Staff Ordering Physician: Ken Chin DO Road Freight Brake Coupler: Alina Glass RDCS Attending Provider: Ken Chin DO Referring Physician: Giuseppe FISHER; Exam Type: CA echo doppler color flow Study Info Indications Z82.41 - FAMILY HISORTY OF SUDEN CARDIAC Complete two-dimensional, color flow and Doppler transthoracic echocardiogram is performed. Strain analysis performed. Summary 1. Complete two-dimensional, color flow and Doppler transthoracic echocardiogram is performed. 2. Left ventricular chamber dimension is mildly enlarged. 3. Left ventricular systolic function is normal, estimated at 55-60%. 4. The left ventricular diastolic function is grade II diastolic dysfunction. 5. E/e' 16 is elevated. 6. Global longitudinal strain is normal at -17.4%. 7. Left atrial chamber dimension is mildly enlarged. 8. There is trace aortic valve regurgitation. 9. There is mild mitral valve regurgitation. 10. No pulmonary hypertension, estimated pulmonary arterial systolic pressure is 29 mmHg. Left Ventricle E/e' 16 is elevated. Global longitudinal strain is normal at -17.4%. Left ventricular chamber dimension is mildly enlarged. Left ventricular systolic function is normal, estimated at 55-60%. The left ventricular diastolic function is grade II diastolic dysfunction. Right Ventricle Right ventricular systolic function is normal and with normal TAPSE 2.7 cm.. Right ventricular chamber dimension is normal. Left Atria Left atrial chamber dimension is mildly enlarged. Right Atria Right atrial chamber dimension is normal. Aortic Valve The aortic valve is probable trileaflet. There is no aortic valve stenosis. There is trace aortic valve regurgitation. Pulmonic Valve There is no pulmonic regurgitation. Mitral Valve There is no mitral valve stenosis. There is mild mitral valve regurgitation. Tricuspid Valve There is no tricuspid valve regurgitation. No pulmonary hypertension, estimated pulmonary arterial systolic pressure is 29 mmHg. Pericardium/Pleural There is no pericardial effusion. Inferior Vena Cava Normal inferior vena cava with >50% collapse upon inspiration consistent with normal right atrial pressure, 5 mmHg. Aorta The aortic root size at the sinus of Valsalva is normal. Left Ventricular Outflow Tract Name Value Normal LVOT 2D LVOT Diameter 2.0 cm LVOT Doppler LVOT Peak Gradient 5 mmHg LVOT Mean Gradient 3 mmHg LVOT VTI 31 cm LVOT VTI/AV VTI Ratio 0.9 LVOT Stroke Volume 97 ml LVOT CO 5.1 l/min LVOT CI 2.4 l/min/m2 Pulmonic Valve Name Value Normal
--- NOTE | 2024-07-02 07:44 | EST_ITS ---
Patient Info Name: Micaela Parra Age: 58 years : 1965 Gender: Female Ht: 64 in Wt: 208 lbs BSA: 2.11 m2 HR: 58 bpm BP: 151 / 92 mmHg Exam Date: 07/02/2024 10:03 AM Exam Location: Echo Lab Patient Status: Outpatient Admit Date: 07/02/2024 Staff Ordering Physician: Ken Chin DO Attending Provider: Ken Chin DO Exercise Technologist: Zina Merida RDCS Exercise Physician: Ken Chin DO Exam Type: CA stress flaquito w NM Study Info A regadenoson stress test was performed. Summary 1. 1. Negative lexiscan stress test for ischemic ST changes by ECG criteria. 2. 2. Baseline hypertension. 3. 3. Nuclear scan to follow and will be reported separately. Please correlate with it. 4. 4. Patient informed of the above results. Protocol: Lexiscan Stress ECG Details Stage: REST Duration (min): 1 min : 47 sec HR (bpm): 61 SBP (mmHg): 151 DBP (mmHg): 92 Stage: REST Duration (min): 6 min : 18 sec HR (bpm): 60 SBP (mmHg): 151 DBP (mmHg): 92 Stage: STAGE 1 Duration (min): 0 min : 59 sec HR (bpm): 89 SBP (mmHg): 164 DBP (mmHg): 97 Stage: RECOVERY Duration (min): 1 min : 0 sec HR (bpm): 86 SBP (mmHg): 164 DBP (mmHg): 97 Stage: RECOVERY Duration (min): 2 min : 0 sec HR (bpm): 91 SBP (mmHg): 164 DBP (mmHg): 97 Stage: RECOVERY Duration (min): 3 min : 0 sec HR (bpm): 82 SBP (mmHg): 162 DBP (mmHg): 97 Stage: RECOVERY Duration (min): 3 min : 15 sec HR (bpm): 78 SBP (mmHg): 162 DBP (mmHg): 97 Rest HR: 60 bpm Peak HR: 95 bpm Rest Sys BP: 151 mmHg Peak Sys BP: 164 mmHg Max Pred HR: 162 bpm % Max Pred HR: 59 % Target HR: 138 bpm Max RPP: 15,580 bpm*mmHg Termination Reason: Completed protocol Cardiac Symptoms: Shortness of breath, Neck pain Total Time: 1 min : 0 sec Rest Cespedes BP: 92 mmHg Peak Cespedes BP: 97 mmHg Total Dose: 0.4 mg Resting ECG Sinus rhythm with borderline ST abnormality in ant/inf leads. Stress ECG No ST changes. Arrhythmias None. Report Signatures
== END 2024-07-02 07:38 | disposition home or self-care (01) ==
LOC: ANHCARD 07:38
PROVIDERS: PCP Family Medicine; Visit Provider Internal Medicine Cardiovascular Disease
DX: I11.0 Hypertensive heart disease with heart failure (principal); I50.30 Unspecified diastolic (congestive) heart failure; I50.1 Left ventricular failure, unspecified; I34.0 Nonrheumatic mitral (valve) insufficiency; I99.8 Other disorder of circulatory system; Z82.41 Family history of sudden cardiac death; R07.9 Chest pain, unspecified
CPT/HCPCS: 78452; 93017; 93306; A9502; J2785

== ENCOUNTER 2025-03-14 13:31 | Outpatient (CLI) | payer OTHER, SELFPAY ==
--- NOTE | ~2025-03-14 | NM_ITS ---
EXAMINATION: NM thyroid scan w uptake DATE: 03/15/2025 14:47 INDICATION: Hyperfunctioning thyroid nodule COMPARISON: None. TECHNIQUE: 356 microcuries I-123 was administered orally in capsule form. Scintigraphic images of th e thyroid gland were obtained at 24 hours. Thyroid uptake was calculated by the technologist. FINDINGS: The thyroid uptake is 24.6% (normal 10-30%), with the right lobe measuring 14.3% uptake and the left 11.2%. The left thyroid lobe appears enlarged relative to the right but with decreased activity in th e upper two thirds of the left thyroid lobe. This appears to correspond to a large left thyroid nodul e as seen on CT dated 07/21/2020 and ultrasound dated 05/14/2024. IMPRESSION: 1. Normal thyroid 24-hour iodine uptake. 2. Asymmetric decreased activity in the cephalad two thirds of the enlarged left thyroid lobe suggest ing the previous noted 3.4 cm TI RADS 3 left thyroid nodule is hypofunctioning. This nodule had remai roger relatively stable since ultrasound dated 07/30/2020 which favors a benign etiology. Consider repe at thyroid ultrasound with consideration for ultrasound-guided biopsy particularly if the nodule has increased in size. Reviewed, dictated and finalized at location A. IMPRESSION: 1. Normal thyroid 24-hour iodine uptake. 2. Asymmetric decreased activity in the cephalad two thirds of the enlarged lef t thyroid lobe suggesting the previous noted 3.4 cm TI RADS 3 left thyroid nodu le is hypofunctioning. This nodule had remained relatively stable since ultraso und dated 07/30/2020 which favors a benign etiology. Consider repeat thyroid ul trasound with consideration for ultrasound-guided biopsy particularly if the no dule has increased in size.
--- OUTSIDE RECORDS SUMMARY | 2025-03-14 14:15 | XMS_ITS | Clinical Summary ---
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
--- OUTSIDE RECORDS SUMMARY | 2025-03-14 14:15 | XMS_ITS | Continuity of Care Document ---
[facility] Organization [facility] Address [address] [place] [address] Phone Care Team Providers Care Boat Carpenter Name Role Phone Unavailable Unavailable Unavailable Allergies, Adverse Reactions, Alerts Substance Reaction Status Criticality Sulfa (Sulfonamide Antibiotics) Skin irritation Active No Information Medications Medication Instructions Dosage Effective Dates (start - stop) Status Comments Macrobid 100 mg capsule take 1 capsule by oral route every 12 hours with food 100 MG - Active Pyridium 100 mg tablet take 1 tablet by oral route 3 times every day after meals as needed 100 MG - Active Procedures Procedure Date Ua Dip Stik/tablet; Wo Micro A 18 Offic/outpt E&m New Low-mod 20 18 Advance Directives Directive Yes / No Effective Date File Name No Information Encounters Encounter Description Practice Location Reason(s) For Visit Diagnoses Date Provider Providers Copied on Encounter Offic/outpt E&m New Low-mod 20 [facility], [address], [place], [place], [id number], [place] tel:[phone] [facility] UTI (chief complaint) Encounter for screening, unspecifiedDy suria Jun-2 0-201 8 No Information Family History Family Member Type Diagnosis Age At Onset No Information Payers Payer name Insurance type Covered alliance party ID Authoriza timulu(s) [facility] [id number] Social History Type Description Quantity Date Captured Comments Alcohol Use Details Unknown Caffeine Use Details Unknown Tobacco Use Status Current non-smoker Smoking Status Never smoker Non-Smoking Tobacco Use Details : No Details Available : No Details Available Sex Female Sexual Orientation Straight or heterosexual Gender Identity Female Vital Signs Date / Time: Height Weight BMI Pulse Rate Blood Pressure Temperature Respiratory Rate Body Surface Area Head Circumference Head Circ. Percentile Wt./David. Percentile BMI percentile Pulse Ox Inhaled Ox 6:46 PM 62.99 in 104.326 kg (230.00 lbs) 40.7 5 kg/m eter (2) 81 /min 129/89 mm[Hg] 98.00 F 19 /min 2.15 meter(2) 93 % Chief Complaint And Reason For Visit From encounter dated 06/29/2018 18:45'. UTI (chief complaint). Description: Onset: 2 Days. The severity of the problem is moderate. Pain scale: 9/10. The problem has not changed. The symptoms are intermittent. Presenting/Initial symptoms include burning, dysuria and frequency. Symptoms are not associated with diabetes. Aggravating factors include urination. Denies relieving factors. Associated symptoms include abdominal pain, dysuria, frequency, pressure and urgency. Pertinent negatives include fatigue, fever, flank pain, nausea or vomiting. Reason For Referral Reason For Referral No Information Plan Of Treatment Date Type Action Status Goal Depression Screening. Due on due Goal Td vaccine. Due on 18 due Goal Tdap. Due on due Goal SBIRT. Due on du e Goal Colonoscopy. Due on 018 due Goal Mammogram. Due on 8 due Goal BELT SANDER STONE exam. Due on due Goal Sigmoidoscopy. Due on due Goal Flu-Quad 3 yrs and older. Du e on due Goal FIT Occult Blood, Fecal, IA. Due on due Goal Lipid panel. Due on 018 due Goal Pap/HPV testing. Due on due Goal Health Promotion Plan. Due o n due Goal Dma-Izfmvl-tosva. Due on Jun due History Of Present Illness Encounter Date Complaint History Of Prese nt Illness UTI Onset: 2 Days. T he severity of the problem is moderate. Pain scale: 9/10. The problem has not changed. The symptoms are intermittent. Presenting/Initial symptoms include burning, dysuria and frequency. Symptoms are not associated with diabetes. Aggravating factors include urination. Denies relieving factors. Associated symptoms include abdominal pain, dysuria, frequency, pressure and urgency. Pertinent negatives include fatigue, fever, flank pain, nausea or vomiting. Functional Status Date Functional Assessmen t Pain Score 9/10 Instructions Date Instruction Additional Infor mation macrobidpyridiumpush fluidsf/u w PCP prn Related to Dysuria Assessments Type Assessment Date assessment Encounter for screening, unspeci fied assessment Dysuria Patient Care Teams Name Effective Dates (start - stop) Status Members No Information
--- OUTSIDE RECORDS SUMMARY | 2025-03-14 14:15 | XMS_ITS | Clinical Summary ---
Author Organization [facility] Address [address] [place] [address] Care Team Providers Care Supervisor Rose Grading Name Role Phone Unavailable Primary Care Provider Unavailabl e Source Comments [facility],non-owned Affiliates and Associated Physician Practices is amultiple site organization consisting of ambulatory clinics and hospital sitesin [place], [place], [place] and [place]. This disclosure is being madepursuant to the Care Everywhere program and may not contain all information available regarding this patient. Last updated 18.[facility] [employer] Social History Tobacco Use Types Packs/Day Years Used Date Smoking Tobacco: Never Assessed Comments Unknown Sex and Gender Information Value Date Recorded Sex Assigned at Not on file Legal Sex Female 6:20 PM CDT Gender Identity Not on file Sexual Orientation Not on file Plan of Treatment Health Maintenance Due Date Last Done Comments COLOGUARD (AGES 45-75) - COL ON CA SCREENING 1965 COLON MONITORING 1965 COLONOSCOPY - COLON CA SCREENING 1965 CT COLONOGRAPHY - COLON CA SCREENING 1965 Colorectal Cancer Screening 1965 FIT - COLON CA SCREENING 1965 FLEX SIG - COLON CA SCREENING 1965 LIPID TESTING 1965 MAMMOGRAM 1965 PAP SMEAR 1965 HIV SCREENING 1980 HEPATITIS C SCREENING 08/15/1983 DTAP/TDAP/TD VACCINES (1 - Tdap) 1984 HEPATITIS B VACCINE (1 of 3 - 19+ 3-dose series) 1984 PNEUMOCOCCAL VACCINE 50+ (1 of 1 - PCV) 2015 ZOSTER VACCINE (1 of 2) 2015 COVID-19 VACCINE ( - 2023-2 5 season) 2024 DEPRESSION SCREENING 10/10/2024 INFLUENZA VACCINE (Season Ended) 2025 HIB VACCINE Aged Out No longer eligi ble based on patient's age to complete this topic HPV VACCINE Aged Out No longer eligi ble based on patient's age to complete this topic MENINGOCOCCAL (Group B) VACC INE SHARED DECISION-MAKING Aged Out No longer eligibl e based on patient's age to complete this topic MENINGOCOCCAL GROUPS A/C/Y/W VACCINE Aged Out No longer eligible b ased on patient's age to complete this topic Insurance ANTH
--- OUTSIDE RECORDS SUMMARY | 2025-03-14 14:15 | XMS_ITS | Clinical Summary ---
Author Organization [facility] [address] [place] [address] Care Team Providers Care Fiscal Manager Name Role Phone Cyrus Rosas MD Primary Care Provider + [phone] Allergies Active Allergy Reactions Criticality Noted Date Comments Latex Hives Medium 05/26/2020 Levofloxacin Hives Medium 04/03/2020 Sulfa (Sulfonamide Antibiotics) Rash Medium 03/11 Medications albuterol HFA (PROAIR HFA) 90 mcg/actuation inhaler inhale 2 puff by inhalation route every 4 - 6 hours as needed 0 Inhaler 0 4 Active Additional Information Patient not taking.Reported on 09/08/2020 beclomethasone (QVAR) 80 mcg/actuation inhaler inhale 1 puff by inhalation route every day 0 Inhaler 0 4 Active Additional Information Patient not taking.Reported on 09/08/2020 ergocalciferol (VITAMIN D2) 50,000 unit capsule take 1 capsule by ORAL route every week 0 0 4 Active Additional Information Patient not taking.Reported on 09/08/2020 famciclovir (FAMVIR) 500 mg tablet take 3 tablest by oral route at onset of cold sore 0 0 4 Active Additional Information Patient not taking.Reported on 09/08/2020 biotin 2,500 mcg capsule take one by oral route every other day 0 0 6 Active valACYclovir (VALTREX) 500 mg tablet take 1 caplet by mouth every 12 hrs for 3 day. start within 24 hrs of symptom onset. 30 0 7 Active Additional Information Patient not taking.Reported on 09/08/2020 lisinopril (PRINIVIL,ZESTR IL) 10 mg tablet 9 Active cholecalciferol (VITAMIN D-3) 5,000 unit capsule Take 1 capsule by mouth every other day Active Active Problems Problem Noted Date Diagnosed Date Non-toxic multinodular goiter 02/23/2014 Overview (01/14/2017): NONTOX MULTINODUL GOITER Assessment & Plan (03/06/2019 12:48 PM CDT): Left lower lobe, as seen on ultrasound Due to an increase in the size of this left lower lobe nodule, an FNA was recommended and it was performed Encounters Date Type Department Care Team Description 03/06/2025 Telephone [facility] Radiology [address] [place] [address] Yohana Ferreira RN from Last 3 Months Surgical History Surgery Date Site/Laterality Comments TONSILLECTOMY Tonsillectomy HYSTERECTOMY Hysterectomy TOTAL ABDOMINAL HYSTERECTOMY W/ BILATERAL SALPINGOOPHORECTOMY Hysterectomy, total abdominal, BSO OTHER SURGICAL HISTORY tonsillectomy, adenoidectomy, hysterectomy, cholecystectomy, OTHER SURGICAL HISTORY partial thyroidectomy, TMJ surgery THYROID SURGERY CHOLECYSTECTOMY Medical History Medical History Date Comments Disorder of thyroid Thyroid dise ase Hypertension Hypertension Adiposity Obesity Hx Other Medical Goiter Hx Other Medical palpitations/PV Cs Hx Other Medical dyslipidemia Family History Medical History Relation Name Comments Diabetes type II Father Diabetes Ty pe II; Cause of : Diabetes Type II Coronary artery disease Mother Ana nary Artery Disease; Diabetes type II Other 1 Family hist ory of Diabetes -Type II; Other Other 2 No family histo ry of Cancer; Other Other 3 No family histo ry of Hypertension; Other Other 4 No family histo ry of Renal disease; Breast cancer Sister Relation Name Status Comments Father Mother Alive Other 1 Other 2 Other 3 Other 4 Sister Social History Tobacco Use Types Packs/Day Years Used Date Smoking Tobacco: Never Alcohol Use Standard Drinks/Week Comments Yes 0 (1 standard drink = 0.6 oz pur e alcohol) PHQ-2 Answer Date Recorded PHQ-2 Score 1 06/02/2019 Comments Unknown Sex and Gender Information Value Date Recorded Sex Assigned at Not on file 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 Female 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 Gender Identity Not on file Sexual Orientation Not on file Obstetrics History Last Filed Vital Signs Vital Sign Reading Time Taken Comments Blood Pressure 179/85 08/03/2024 10:31 AM CDT Pulse 58 08/03/2024 10:31 AM CDT Temperature - - Respiratory Rate 12 03/06/2019 9:10 AM CDT Oxygen Saturation - - Inhaled Oxygen Concentration - - Weight 93 kg (205 lb) 09/08/2020 1:41 PM BILLING SPECIALIST Height 162.6 cm (5' 4) 09/08/2020 1:41 PM BILLING SPECIALIST Body Mass Index 35.19 09/08/2020 1:41 PM BILLING SPECIALIST Plan of Treatment Health Maintenance Due Date Last Done Comments Breast Cancer Screening-Mammogram 1965 Colon Cancer Screening-Colonoscopy 1965 Hepatitis C Screening 1965 DTaP/Tdap/Td Vaccine (1 - Tdap) 1976 Hepatitis B Screening 1983 Regular Well Visit/Exam 18-64 1983 Zoster Vaccine (1 of 2) 2015 Depression Screening 03/06/2020 03/06/2019 Covid-19 Vaccine ( - 2023-2 5 season) 2024 10/13/2021, 01/09/2021, 12/19/2020 Influenza Vaccine (Season Ended) 2025 Pneumococcal vaccine <65 Aged Out No longer eligible based on patient's age to complete this topic [place] [address] [facility] TRADITIONAL BLUE [employer] OOS [email or web address] CHOICE OOS [email or web address] CHOICE OOS Member Subscriber Plan / Payer (Ef fective 2022-Present) Name:Micaela Parra Relation to Subscriber:Spouse Name:JAN PARRA Date of :1961 (Home) [address]: [address] [place] [address] [place] [address] Payer ID:[id number] (NAIC) Type:BC ALLIANCE Address: [facility] [address] [place] [id number] Care Teams Fiscal Manager Relationship Specialty Start Date End Date Cyrus Rosas MD PCP - General Family Medicine 02/21/19
--- OUTSIDE RECORDS SUMMARY | 2025-03-14 14:15 | XMS_ITS | Referral Summary ---
Author Organization [facility] [address] [place] [address] Care Team Providers Care It Trainer Name Role Phone Cyrus Rosas MD Primary Care Provider [phone] Encounters Date Type Department Care Team Description 03/06/2025 Telephone [facility] Radiology 1 [place] [address] Yohana Ferreira RN from Last 3 Months Allergies Active Allergy Reactions Criticality Noted Date [...] FNA was recommended and it was performed Social History Tobacco Use Types Packs/Day Years Used Date Smoking Tobacco: Never Alcohol Use Standard Drinks/Week Comments Yes 0 (1 standard drink = 0.6 oz pur e alcohol) PHQ-2 Answer Date Recorded PHQ-2 Score 1 06/02/2019 Comments Unknown Sex and Gender Information Value Date Recorded Sex Assigned at Not on file 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 Gender Identity Not on file Sexual Orientation Not on file Last Filed Vital Signs Vital Sign Reading Time Taken Comments Blood Pressure 179/85 08/03/2024 10:31 AM CDT Pulse 58 08/03/2024 10:31 AM CDT Temperature - - Respiratory Rate 12 03/06/2019 9:10 AM CDT Oxygen Saturation - - Inhaled Oxygen Concentration - - Weight 93 kg (205 lb) 09/08/2020 1:41 PM REPRODUCTION ORDER PROCESSOR Height 162.6 cm (5' 4) 09/08/2020 1:41 PM REPRODUCTION ORDER PROCESSOR Body Mass Index 35.19 09/08/2020 1:41 PM REPRODUCTION ORDER PROCESSOR Plan of Treatment Not on file Insurance ANTH TRADITIONAL BLUE ACCESS OOS BLUE ACC CHOICE OOS BLUE [facility] CHOICE OOS Member Subscriber Plan / Payer (Ef fective 2022-Present) Name:Aida, Micaela L Relation to Subscriber:Spouse Name:AIDAJAN Date of :1961 (Home) Address: [facility] [place] [address] Payer ID:[id number] (NAIC) Type:BC ALLIANCE Address: [facility] [address] [place] [id number] Care Teams It Trainer Relationship Specialty Start Date End Date Cyrus Rosas MD PCP - General Family Medicine 02/21/19
--- OUTSIDE RECORDS SUMMARY | 2025-03-14 14:15 | XMS_ITS | Continuity of Care Document ---
Author Organization [facility] Address [address] [place] [address] Phone Care Team Providers Care Pig Machine Operator Name Role Phone Stuart Peres MD, MD Unavailable Unavailable Allergies, Adverse Reactions, Alerts Substance Reaction Status Criticality latex SwellingSwelling Active No Informat ion latex Rash Active No Information Sulfa (Sulfonamide Antibiotics) Rash Active No Information Medications Medication Instructions Dosage Effective Dates (start - stop) Status Comments Vitamin D3 10 mcg (400 unit) tablet - Active vitamin K2 40 mcg tablet - Activ e Procedures Procedure Date Kenalog 40mg/mL Asp/Injection, Major Joint W/ Ultrasound Office/outpatient visit,est, mod 2024 Monovisc Asp/Injection, Major Joint W/ Ultrasound BMI Documented Above Normal Limit F/U Pl an Doc Office/outpatient visit,new, mod 2023 Advance Directives Directive Yes / No Effective Date File Name No Information Encounters Encounter Description Practice Location Reason(s) For Visit Diagnoses Date Provider Providers Copied on Encounter [facility], [address] [facility] [place], [place], [id number], [place] tel:[phone] [facility] [employer] [facility] [facility] No Information Larisa Davidson. [address] [facility], [email or web address] [address], [place], [place], [id number] , [place]. [phone] [facility], [address], [id number], [place] tel:[phone] [facility] left knee pain (chief complaint) Unilateral primary osteoarthriti s, left knee 5 Franklin TIMBER SKIDDER Mackenzie . [address] [facility], [address], [id number] , [place]. [phone] Office/outpa tient visit,est, mod [facility], [address], [id number], [place] tel:[phone] [facility] left knee pain (chief complaint) Unilateral primary osteoarthriti s, left knee 5 Larisa Davidson. [address], [id number] , [place]. tel:[phone] Referring Provider: Cyrus Price [address], [address]. tel:[phone] [facility], [address], [id number], [place] tel:[phone] [facility] [employer] [facility] left knee pain (chief complaint) Unilateral primary osteoarthriti s, left knee 4 Franklin TIMBER SKIDDER Mackenzie . [address] [facility], [address], [id number] , [place]. tel:[phone] Referring Provider: Cyrus Price [facility] [address] [place], [address]. tel:[phone] [facility], [address], [id number], [place] tel:[phone] [facility] [employer] [facility] Pain in left kneeUnilatera l primary osteoarthriti s, left knee 4 Larisa Davidson. [address] [facility], [address], [id number] , [place]. tel: [phone] Office/outpa tient visit,new, [facility], [address], [place], [place], [id number], [place] tel:[phone] [facility] left knee pain (chief complaint) Pain in left knee 4 Larisa Davidson. [address] [facility], [address], [place], [place], [id number] , [place]. tel: [phone] Family History Family Member Type Diagnosis Age At Onset Father Problem (finding) Hypertension Mother Problem (finding) Osteoarthritis Sister Problem (finding) Diabetes Sister Problem (finding) Heart Disease Father Problem (finding) Heart Disease Sister Problem (finding) Hypertension Sister Problem (finding) Osteoarthritis Mother Problem (finding) Kidney Disease Mother Problem (finding) Heart Disease Sister Problem (finding) Cancer, unknown Father Problem (finding) Diabetes Payers Payer name Insurance type Covered democrat ID Authoriza timulu(s) [facility] [id number] Social History Type Description Quantity Date Captured Comments Alcohol Use Details Unknown Caffeine Use Details Unknown Tobacco Use Status No Information Smoking Status No Information Sex Female Chief Complaint And Reason For Visit No Information Reason For Referral Reason For Referral No Information Plan Of Treatment Date Type Action Status Future Order: Lab Order C Reacti ve Protein (CRP), Ordered on: Ordered Future Order: Lab Order CBC W/Di ff (CBC w/Diff), Ordered on: Ordered Future Order: Lab Order Sed Rate (Sed Rate), Ordered on: Ordered History Of Present Illness Encounter Date Complaint History Of Prese nt Illness left knee pain Micaela Parra is a 59 year old female. She presents with pain on the left side. Please see Dr. Peres' previous note for further history, exam and plan details. left knee pain Micaela Parra is a 59 year old female. The patient has known knee osteoarthritis and returns for evaluation and treatment noting progression/exacerbation of symptoms after what sounds like a good response to Visco injections last summer. She notes overall those were fairly helpful, although did take some time to take effect. Unfortunately roughly a month ago she had a pop in the knee and pain worsened again. She presents with pain, swelling and decreased range of motion on the left side. She states that the symptoms have been chronic non-traumatic. The symptoms occur constantly with intermittent worsening. The problem is worse. Currently the patient states that the symptoms are incapacitating. The pain is described as aching, localized and sharp. The symptoms occur with activity. The patient is experiencing pain in the following location: medially based as well as anterior/posterior on the left side. The symptoms are aggravated by ascending stairs, daily activities, descending stairs, movement, standing and walking. In addition to left knee pain the patient is also experiencing crepitus, decreased mobility, difficulty bending, limping, night pain and pain after activity. Pertinent negatives include fever, radicular symptoms, numbness and weakness. The patient has had a previous x-ray. She has had prior injections, physical therapy/home exercises, ice, OTC meds. Patient has had arthroscopic surgery. left knee pain Micaela Parra is a 58 year old female. She returns today as her recent labs were negative in participation of a left knee cortisone injection. In addition she has known moderate knee osteoarthritis. She presents with pain on the left side. The patient would like to proceed with an injection today. left knee pain Micaela Parra is a 58 year old female. She presents with pain, crepitus and swelling on the left side. She states that the symptoms have been chronic non-traumatic. She has a history significant for ongoing patellofemoral arthritic symptoms which failed steroid injection and physical therapy. She was then referred to Dr. Andrey Nelson and underwent an arthroscopic chondroplasty and lateral release in October. This was complicated by reported prolonged drainage from the lateral portal, continued swelling, crepitus and pain. She did complete a course of postoperative physical therapy as well as a second course ordered by her primary care provider. Additionally, she reports a postoperative aspiration and steroid injection which provided 4 days of relief, followed by return of pain. She presents today for second opinion. The symptoms occur constantly with intermittent worsening. The pain is described as aching, dull, sharp and stabbing. The symptoms occur with activity. The patient is experiencing pain in the following location: anteriorly based on the left side. She rates her current pain as 7/10. The symptoms are aggravated by daily activities, ascending stairs, descending stairs, standing and walking. Micaela states that the symptoms are relieved by ice, elevation and rest. Pertinent negatives include groin pain, radicular symptoms, fever/chills/night sweats/drainage. Functional Status Date Functional Assessmen t No Information Instructions Date Instruction Additional Infor susy Injection performed today as documented. Continue non-operative treatments as outlined previously. Follow up prn if symptoms return or worsen. Questions answered, verbalized understanding. Related to Unilateral primary osteoarthritis, left knee They are indicated f or non-operative treatments. We will continue efforts on weight control/loss. We discussed activity modifications and instructions on icing were given. She will continue her prior home exercise program. They were instructed in the use of Tylenol/NSAIDs over the counter and we discussed monitoring for side effects including GI upset, bleeding, or other intolerance. We discussed the risks and benefits of an injection and they would like to proceed. This will be arranged with my CLINICAL DOCUMENTATION CONSULTANT Ebony Torres. We will start with corticosteroid given the acute onset of her pain recurrence and consider visco again for more sustained relief if needed. We discussed possible need for knee replacement in the future if non-surgical treatment fails and the general risks, benefits, and recovery for this. We discussed such surgery would need to be delayed at least 3 months after injection due to infection risks. The patient will follow up on an as needed basis. Questions answered, verbalized understanding and agreement. Related to Unilateral primary osteoarthritis, left knee Injection performed today as documented. Continue non-operative treatments as outlined previously. Follow up prn if symptoms return or worsen. Questions answered, verbalized understanding. Related to Unilateral primary osteoarthritis, left knee Given the overall pr esentation it be reasonable prudent to rule out indolent infection although think this is unlikely. We will obtain a CRP, sed rate, CBC with differential. If these are negative then given the prior injection led to no untoward effects we can safely assume there is no indolent infection. If elevated, we may need to consider aspiration for arthrocentesis.Provided there is no indolent infection, the neck step would be to proceed with an ultrasound-guided intra-articular injection of hyaluronic acid if he can obtain insurance approval. She will continue her physical therapy with 3-4 more visits to finalize her home program. She will ice, and use NSAIDs as instructed. We discussed the need to monitor for side effects. In the future, perhaps a pes bursa injection could be useful as well although this appears to be a secondary issue. We will follow-up and proceed as indicated once the labs have been completed. Related to Pain in left knee Assessments Type Assessment Date No Information Patient Care Teams Name Effective Dates (start - stop) Status Members No Information
== END 2025-03-14 13:32 | disposition home or self-care (01) ==
PROVIDERS: PCP Family Medicine; Visit Provider Internal Medicine
DX: R94.6 Abnormal results of thyroid function studies (principal); E78.5 Hyperlipidemia, unspecified; I10 Essential (primary) hypertension; E04.1 Nontoxic single thyroid nodule; E11.65 Type 2 diabetes mellitus with hyperglycemia; R79.89 Other specified abnormal findings of blood chemistry; R63.5 Abnormal weight gain; E11.9 Type 2 diabetes mellitus without complications
CPT/HCPCS: 78014; A9516

== ENCOUNTER 2025-03-18 15:01 | Outpatient (CLI) | payer OTHER, SELFPAY ==
--- NOTE | ~2025-03-18 | MM_ITS ---
EXAMINATION: MM screening rudolph BI w adan HISTORY: Screening TECHNIQUE: Craniocaudal and mediolateral oblique 3-D tomosynthesis images were obtained and synthetic 2-D images were generated. CAD analysis was submitted and interpreted. COMPARISON: Comparison to multiple prior studies sequentially, with oldest reviewed study dated 12/03. BREAST PARENCHYMAL COMPOSITION: Not dense: There are scattered areas of fibroglandular density. FINDINGS: There is no evidence of suspicious mass, calcification, or architectural distortion to sugg est malignancy in either breast. There has been no suspicious interval change. IMPRESSION: 1. No mammographic evidence of malignancy. 2. Recommend routine screening mammography in one year. BI-RADS Category 1: Negative Reviewed, dictated and finalized at location B.
--- OUTSIDE RECORDS SUMMARY | 2025-03-18 16:06 | XMS_ITS | Clinical Summary ---
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
--- OUTSIDE RECORDS SUMMARY | 2025-03-18 16:06 | XMS_ITS | Continuity of Care Document ---
Author Organization [facility] Address [address] [place] [address] Phone Care Team Providers Care Pipe Covering Molder Name Role Phone Unavailable Unavailable Unavailable Allergies, [...] on Encounter Offic/outpt E&m New Low-mod 20 [facility], [address], [place], [place], [id number], [place] tel:[phone] [facility] UTI (chief complaint) Encounter for screening, unspecifiedDy suria Jun-2 0-201 8 No Information Family History Family Member Type Diagnosis Age At Onset No Information Payers Payer name Insurance type Covered republican ID Authoriza timulu(s) [facility] [id number] Social History Type Description Quantity Date Captured [...] Goal SBIRT. Due on du e Goal Oif-Fgktjd-efcys. Due on Jun due Goal Colonoscopy. Due on 018 due Goal Mammogram. Due on 8 due Goal ROLL EXAMINER exam. Due on due Goal Sigmoidoscopy. Due on due Goal Flu-Quad 3 yrs and older. Du e on due Goal FIT Occult Blood, Fecal, [place]. Due on due Goal Lipid panel. Due on 018 due Goal Pap/HPV testing. Due on due Goal Health Promotion Plan. Due o n due History Of Present Illness Encounter Date [...]
--- OUTSIDE RECORDS SUMMARY | 2025-03-18 16:06 | XMS_ITS | Continuity of Care Document ---
Author Organization [facility] Address [address] [place] [address] Phone Care Team Providers Care Notch Machine Operator Name Role Phone Stuart Peres [...] Date Provider Providers Copied on Encounter [facility], [address] [facility], [place], [place], [id number], [place] tel:[phone] [facility] No Information Larisa Davidson. [address] [facility] [facility] [address], [place], [place], [id number] , [place]. [phone] [facility], [address], [id number], [place] tel:[phone] [facility] [employer] [facility] left knee pain (chief complaint) Unilateral primary osteoarthriti s, left knee 5 Elizabeth FIELD ASSOCIATE Mackenzie . [address] [facility], [address], [id number] , [place]. [phone] Office/outpa tient visit,est, mod [facility], [address], [id number], [place] tel:[phone] [facility] left knee pain (chief complaint) Unilateral primary osteoarthriti s, left knee 5 Larisa Davidson. [address], [id number] , [place]. tel:[phone] Referring Provider: Cyrus Price [address], [address]. tel:[phone] 9625 [facility], [address], [id number], [place] tel:[phone] [facility] left knee pain (chief complaint) Unilateral primary osteoarthriti s, left knee 4 Elizabeth FIELD ASSOCIATE Mackenzie . [address] [facility], [address], [id number] , [place]. tel:[phone] Referring Provider: Cyrus Price [facility] [address] [place], [address]. tel:[phone] [facility], [address], [id number], [place] tel:[phone] [facility] Pain in left kneeUnilatera l primary osteoarthriti s, left knee 4 Larisa Davidson. [address] [facility], [address], [id number] , [place]. tel: [phone] Office/outpa [place]ient visit,[place], [facility], [address] [facility], [place], [place], [id number], [place] tel:[phone] [facility] left knee pain (chief complaint) Pain in left knee 4 Larisa Davidson. [address] [facility], [place], [place], [id number] , [place]. tel: [phone] Family History Family Member Type Diagnosis Age [...] Diabetes Payers Payer name Insurance type Covered green party ID Authoriza timulu(s) [facility] [id number] Social History Type Description Quantity Date Captured [...] proceed. This will be arranged with my GALLERY MANAGER Ebony Torres. We will start with corticosteroid [...]
--- OUTSIDE RECORDS SUMMARY | 2025-03-18 16:07 | XMS_ITS | Clinical Summary ---
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 SERVICE SECURITY OFFICER Gender Identity Not on file Sexual Orientation Not on file Obstetrics History Last Filed Vital Signs Vital Sign Reading Time Taken Comments Blood Pressure 179/85 08/03/2024 10:31 AM CDT Pulse 58 08/03/2024 10:31 AM CDT Temperature - - Respiratory Rate 12 03/06/2019 9:10 AM CDT Oxygen Saturation - - Inhaled Oxygen Concentration - - Weight 93 kg (205 lb) 09/08/2020 1:41 PM CUSTOMER SERVICE SECURITY OFFICER Height 162.6 cm (5' 4) 09/08/2020 1:41 PM CUSTOMER SERVICE SECURITY OFFICER Body Mass Index 35.19 09/08/2020 1:41 PM CUSTOMER SERVICE SECURITY OFFICER Plan of Treatment Health Maintenance Due Date [...] age to complete this topic [place] [address] [facility] TRADITIONAL BLUE [employer] OOS [employer] CHOICE OOS [employer] CHOICE OOS Member Subscriber Plan / Payer (Ef fective 2022-Present) Name:Micaela Parra Relation to Subscriber:Spouse Name:JAN PARRA Date of :1961 (Home) Address: [address] [place] [address] [place] [address] Payer ID:[id number] (NAIC) Type:BC ALLIANCE Address: [facility] [id number] [place] [id number] Care Teams Wire Wrapper Machine Operator Relationship Specialty Start Date End Date Cyrus Rosas MD PCP - General Family Medicine 02/21/19
--- OUTSIDE RECORDS SUMMARY | 2025-03-18 16:07 | XMS_ITS | Clinical Summary ---
Author Organization [facility] Address [address] [facility] [place] [address] Care Team Providers Care Ophthalmic Pathologist Name Role Phone Unavailable Primary Care Provider Unavailabl e Source Comments [facility],non-owned Affiliates and Associated Physician Practices is amultiple site organization consisting of ambulatory clinics and hospital sitesin [place], [place], [place] and [place]. This disclosure is being madepursuant to the Care Everywhere program and may not contain all information available regarding this patient. Last updated 18.[facility] [employer] Social History Tobacco Use Types Packs/Day Years [...]
--- OUTSIDE RECORDS SUMMARY | 2025-03-18 16:07 | XMS_ITS | Referral Summary ---
Author Organization [facility] [address] [place] [address] Care Team Providers Care Automobile Accessories Installer Name Role Phone Cyrus Rosas MD Primary Care Provider [phone] Encounters Date Type Department Care Team Description 03/06/2025 Telephone [facility] Radiology 1 [place] [address] Yohana Ferreira RN from Last [...] on file Legal Sex Female 12:29 AM REPORTING MANAGER Gender Identity Not on file Sexual Orientation Not on file Last Filed Vital Signs Vital Sign Reading Time Taken Comments Blood Pressure 179/85 08/03/2024 10:31 AM CDT Pulse 58 08/03/2024 10:31 AM CDT Temperature - - Respiratory Rate 12 03/06/2019 9:10 AM CDT Oxygen Saturation - - Inhaled Oxygen Concentration - - Weight 93 kg (205 lb) 09/08/2020 1:41 PM REPORTING MANAGER Height 162.6 cm (5' 4) 09/08/2020 1:41 PM REPORTING MANAGER Body Mass Index 35.19 09/08/2020 1:41 PM REPORTING MANAGER Plan of Treatment Not on file Insurance ANTH TRADITIONAL BLUE ACCESS OOS BLUE ACC CHOICE OOS BLUE [facility] CHOICE OOS Member Subscriber Plan / Payer (Ef fective 2022-Present) Name:Aida, Micaela L Relation to Subscriber:Spouse Name:AIDAJAN Date of :1961 (Home) Address: [facility] [place] [address] Payer ID:[id number] (NAIC) Type:BC ALLIANCE Address: [facility] [id number] [place] [id number] Care Teams Automobile Accessories Installer Relationship Specialty Start Date End Date Cyrus Rosas MD PCP - General Family Medicine 02/21/19
== END 2025-03-18 15:02 | disposition home or self-care (01) ==
PROVIDERS: PCP Family Medicine; Visit Provider Obstetrics & Gynecology
DX: Z12.31 Encounter for screening mammogram for malignant neoplasm of breast (principal)
CPT/HCPCS: 77063; 77067

== ENCOUNTER 2025-03-20 12:43 | Outpatient (CLI) | payer OTHER, SELFPAY ==
--- NOTE | ~2025-03-20 | US_ITS ---
EXAMINATION: US thyroid DATE: 03/20/2025 12:59 INDICATION: Nontoxic multinodular goiter TECHNIQUE: Multiple ultrasound images of the thyroid were obtained. COMPARISON: None. FINDINGS: The right thyroid lobe measures 4.7 x 1.9 x 2.4 cm. The left thyroid lobe measures 5.1 x 2.7 x 2.3 c m. There are several solid or nearly entirely solid isoechoic nodules with smooth to ill-defined mar gins and without echogenic foci (TI-RADS 3, mildly suspicious , FNA if >=2.5 cm, annual followup is > 1.5 cm). There are 3 in the right thyroid lobe which measure 2.3 cm, 1.8 cm and 1.3 cm in maximal bibi meters and 2 in the left thyroid lobe measuring 3.7 cm and 1.4 cm in maximal diameters. There is diff use increased vascular flow throughout the thyroid. IMPRESSION: 1. Multinodular goiter with five TI-RADS 3 nodules, the largest in the left thyroid lobe measures 3.7 cm which meets criteria for ultrasound-guided biopsy which would be recommended. Reviewed, dictated and finalized at location A. IMPRESSION: 1. Multinodular goiter with five TI-RADS 3 nodules, the largest in the left thy roid lobe measures 3.7 cm which meets criteria for ultrasound-guided biopsy wh ch would be recommended.
== END 2025-03-20 12:44 | disposition home or self-care (01) ==
LOC: GOSHIMG 12:44
PROVIDERS: PCP Family Medicine; Visit Provider Internal Medicine
DX: E04.2 Nontoxic multinodular goiter (principal)
CPT/HCPCS: 76536

== ENCOUNTER 2025-03-21 12:31 | Outpatient (CLI) | payer OTHER, SELFPAY ==
--- NOTE | ~2025-03-21 | MR_ITS ---
MRI of the left knee Clinical history: Pain Technique: Coronal proton density and proton density-weighted images, sagittal proton-density and T2 fat-sat images, and axial proton-density fat-saturated images were acquired. COMPARISON: 09/20/2023 Findings: Anterior and posterior cruciate ligaments are intact. Medial collateral ligament and the la teral collateral ligament complex are intact. Popliteus tendon is intact. There is oblique, complex tearing of the posterior horn and body of the medial meniscus. No lateral m eniscal tear seen. There is moderate to high-grade chondromalacia the patellar apex and along the lateral facet. 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 There is patchy moderate to high-grade chondromalacia in the medial compartment. Articular cartilage in the lateral compartment is well preserved. Tricompartment osteophytic are present. Extensor mechanism is intact. Small joint effusion present. No Capps's cyst. Impression: Complex oblique tear of the posterior horn and body of medial meniscus. Moderate degenerative change of the medial and patellofemoral compartments. Mild degenerative change of the lateral compartment. Small joint effusion. Reviewed, dictated and finalized at location . Impression: Complex oblique tear of the posterior horn and body of medial meniscus. Moderate degenerative change of the medial and patellofemoral compartments. Mil d degenerative change of the lateral compartment. Small joint effusion.
--- OUTSIDE RECORDS SUMMARY | 2025-03-21 13:01 | XMS_ITS | Continuity of Care Document ---
Author Organization [facility] Address [address] [place] [address] Phone Care Team Providers Care Pick Up Man Name Role Phone Stuart Peres MD, MD [...] Date Provider Providers Copied on Encounter [facility] [employer], [address] [facility] [place], [place], [id number], [place] tel:[phone] [facility] No Information Larisa Davidson. [address] [facility], [facility] [address], [place], [place], [id number] , [place]. [phone] [facility], [address], [id number], [place] tel:[phone] [facility] [employer] [facility] left knee pain (chief complaint) Unilateral primary osteoarthriti s, left knee 5 [place] TANNERY GUMMER Mackenzie . [address] [facility], [address], [id number] , [place]. [phone] Office/outpa tient visit,est, mod [facility], [address], [id number], [place] tel:[phone] [facility] left knee pain (chief complaint) Unilateral primary osteoarthriti s, left knee 5 Larisa Davidson. [address], [id number] , [place]. tel:[phone] Referring Provider: Cyrus Price [address], [address]. tel:[phone] [facility], [address], [id number], [place] tel:[phone] [facility] left knee pain (chief complaint) Unilateral primary osteoarthriti s, left knee 4 [place] TANNERY GUMMER Mackenzie . [address] [facility], [address], [id number] , [place]. tel:[phone] Referring Provider: Cyrus Price [facility] [address] [place], [address]. tel:[phone] [facility], [address], [id number], [place] tel:[phone] [facility] Pain in left kneeUnilatera l primary osteoarthriti s, left knee 4 Larisa Davidson. [address] [facility], [address], [id number] , [place]. tel: [phone] Office/outpa tient visit,[place], [facility] [place] [facility], [address], [place], [place], [id number], [place] tel:[phone] [facility] Professional [facility] left knee pain (chief complaint) Pain in left knee 4 Larisa Davidson. [address] [facility], [address], [place], [place], [id number] , [place]. tel: [phone] Family History Family Member Type Diagnosis Age [...] type Covered green party ID Authoriza timulu(s) [facility] [id number] Social History Type Description Quantity Date Captured [...] proceed. This will be arranged with my AUTOMOTIVE SERVICE MANAGER Ebony Torres. We will start with [...]
--- OUTSIDE RECORDS SUMMARY | 2025-03-21 13:01 | XMS_ITS | Clinical Summary ---
Author Organization [facility] Address [address] [place] [address] Care Team Providers Care Tennis Ball Coverer Hand Name Role Phone Unavailable Primary Care Provider Unavailabl e Source Comments [facility],non-owned Affiliates and Associated Physician Practices is amultiple site organization consisting of ambulatory clinics and hospital sitesin [place], [place], [place] and [place]. This disclosure is being madepursuant to the Care Everywhere program and may not contain all information available regarding this patient. Last updated 18.[facility] [employer] Social History Tobacco Use Types Packs/Day Years [...]
--- OUTSIDE RECORDS SUMMARY | 2025-03-21 13:01 | XMS_ITS | Clinical Summary ---
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
--- OUTSIDE RECORDS SUMMARY | 2025-03-21 13:01 | XMS_ITS | Clinical Summary ---
Author Organization [facility] [address] [place] [address] Care Team Providers Care Autocad Technician Name Role Phone Cyrus Rosas MD Primary Care Provider [phone] Allergies Active Allergy Reactions Criticality Noted Date [...] Type Department Care Team Description 03/06/2025 Telephone [facility] Radiology [address] [place] [address] Yohana Ferreira RN from Last 3 Months [...] on file Legal Sex Female 12:29 AM PHYSICIST CRYOGENICS Gender Identity Not on file Sexual Orientation Not on file Obstetrics History Last Filed Vital Signs Vital Sign Reading Time Taken Comments Blood Pressure 179/85 08/03/2024 10:31 AM CDT Pulse 58 08/03/2024 10:31 AM CDT Temperature - - Respiratory Rate 12 03/06/2019 9:10 AM CDT Oxygen Saturation - - Inhaled Oxygen Concentration - - Weight 93 kg (205 lb) 09/08/2020 1:41 PM PHYSICIST CRYOGENICS Height 162.6 cm (5' 4) 09/08/2020 1:41 PM PHYSICIST CRYOGENICS Body Mass Index 35.19 09/08/2020 1:41 PM PHYSICIST CRYOGENICS Plan of Treatment Health Maintenance Due Date [...] age to complete this topic [place] [address] [facility] TRADITIONAL BLUE [employer] OOS [email or web address] CHOICE OOS [email or web address] CHOICE OOS Member Subscriber Plan / Payer (Ef fective 2022-Present) Name:Micaela Parra Relation to Subscriber:Spouse Name:JAN PARRA Date of :1961 (Home) Address: [address] [place] [address] [place] [address] Payer ID:[id number] (NAIC) Type:BC ALLIANCE Address: [facility] [id number] [place] [id number] Care Teams Autocad Technician Relationship Specialty Start Date End Date Cyrus Rosas MD PCP - General Family Medicine 02/21/19
--- OUTSIDE RECORDS SUMMARY | 2025-03-21 13:01 | XMS_ITS | Referral Summary ---
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 Gender Identity Not on file Sexual Orientation Not on file Last Filed Vital Signs Vital Sign Reading Time Taken Comments Blood Pressure 179/85 08/03/2024 10:31 AM CDT Pulse 58 08/03/2024 10:31 AM CDT Temperature - - Respiratory Rate 12 03/06/2019 9:10 AM CDT Oxygen Saturation - - Inhaled Oxygen Concentration - - Weight 93 kg (205 lb) 09/08/2020 1:41 PM LOBSTER MAN Height 162.6 cm (5' 4) 09/08/2020 1:41 PM LOBSTER MAN Body Mass Index 35.19 09/08/2020 1:41 PM LOBSTER MAN Plan of Treatment Not on file Insurance ANTH TRADITIONAL BLUE ACCESS OOS BLUE ACC CHOICE OOS BLUE [facility] CHOICE OOS Member Subscriber Plan / Payer (Ef fective 2022-Present) Name:Aida, Micaela L Relation to Subscriber:Spouse Name:AIDAJAN Date of :1961 (Home) Address: [facility] [place] [address] Payer ID:[id number] (NAIC) Type:BC ALLIANCE Address: [facility] [id number] [place] [id number] Care Teams Training Professional Relationship Specialty Start Date End Date Cyrus Rosas MD PCP - General Family Medicine 02/21/19
--- OUTSIDE RECORDS SUMMARY | 2025-03-21 13:01 | XMS_ITS | Continuity of Care Document ---
Author Organization [facility] Address [address] [place] [address] Phone Care Team Providers Care Correctional Sergeant Name Role Phone Unavailable Unavailable Unavailable Allergies, [...] on Encounter Offic/outpt E&m [place]-mod 20 [facility], [address], [place], [place], [id number], [place] tel:[phone] [facility] UTI (chief complaint) Encounter for screening, unspecifiedDy suria Jun-2 0-201 8 No Information Family History Family Member Type Diagnosis Age At Onset No Information Payers Payer name Insurance type Covered republican ID Authoriza timulu(s) [facility] [id number] Social History Type Description Quantity Date Captured [...] Goal Mammogram. Due on 8 due Goal CAN TECHNICIAN exam. Due on due Goal Sigmoidoscopy. Due on due Goal Flu-Quad 3 yrs and older. Du e on due Goal FIT Occult Blood, Fecal, [place]. Due on due Goal Lipid panel. Due on 018 due Goal Pap/HPV testing. Due on due Goal Health Promotion Plan. Due o n due Goal [id number]. Due on Jun due History Of Present [...]
== END 2025-03-21 12:32 | disposition home or self-care (01) ==
PROVIDERS: PCP Family Medicine
DX: M25.562 Pain in left knee (principal); M19.90 Unspecified osteoarthritis, unspecified site; S83.232A Complex tear of medial meniscus, current injury, left knee, initial encounter; M25.462 Effusion, left knee
CPT/HCPCS: 73721